=== PATIENT | female | born 1960 | race African-American/Black ===

== ENCOUNTER 2016-11-28 12:40 | Emergency (ER) | payer BC ==
[2016-11-28] MEDS ORDERED: ASPIRIN 81 MG TABLET, CHEWABLE PO ONE (12:58)
--- NOTE | 2016-11-28 12:59 | ER Document Report ---
ED Medical Screen (RME) - General Stated Complaint: CHEST PAIN, ELEVATED BLOOD PRESSURE Mode of Arrival: Wheelchair Information source: Patient Notes: Patient complains of palpitations and elevated blood pressure today. Patient also reports some chest pain that started last night. hx: Asthma, CHF, cardiomegaly, GERD I have greeted and performed a rapid initial assessment of this patient. A comprehensive ED assessment and evaluation of the patient, analysis of test results and completion of the medical decision making process will be conducted by additional ED providers. TRAVEL OUTSIDE OF THE [place] IN LAST 30 DAYS: No - Related Data Allergies/Adverse Reactions: fish derived [Fish derived] Allergy (Unknown, Verified 09/18/16 14:56) hydrocodone bitartrate [From [place]] Allergy (Verified 09/18/16 14:56) latex [Latex] Allergy (Verified 09/18/16 14:56) Past Medical History - Past Medical History Cardiac Medical History: Reports: Hx Congestive Heart Failure, Hx Hypertension Denies: Hx Atrial Fibrillation, Hx Coronary Artery Disease, Hx DVT, Hx Heart Attack, Hx Hypercholesterolemia, Hx Peripheral Vascular Disease, Hx Pulmonary Embolism, Hx Heart Murmur Pulmonary Medical History: Reports: Hx Asthma, Hx COPD Denies: Hx Bronchitis, Hx Pneumonia Neurological Medical History: Denies: Hx Cerebrovascular Accident, Hx Seizures Renal/ Medical History: Reports: Hx Kidney Stones. Denies: Hx End Stage Renal Disease, Hx Ovarian Cysts, Hx Peritoneal Dialysis, Hx Pelvic Inflammatory Disease GI Medical History: Reports: Hx Gastroesophageal Reflux Disease, Hx Hiatal Hernia, Hx Irritable Bowel Musculoskeltal Medical History: Reports Hx Arthritis, Reports Hx Musculoskeletal Deformity Past Surgical History: Reports: Hx Breast Surgery - bilateral lumphectomy, Hx Cardiac Catheterization - X 2, Hx Section, Hx Cholecystectomy, Hx Hysterectomy, Hx Orthopedic Surgery - right shoulder x 2, neck - Immunizations Immunizations up to date: Yes Hx Diphtheria, Pertussis, Tetanus Vaccination: Yes Physical Exam - Vital signs Vitals: Temp Pulse Resp BP Pulse Ox 97.9 F 64 20 157/95 H 100 11/28/16 12:55 11/28/16 12:55 11/28/16 12:55 11/28/16 12:55 11/28/16 12:55 - Cardiovascular Rhythm: Regular Heart sounds: S1 appreciated, S2 appreciated Course - Vital Signs Vital signs: Temp Pulse Resp BP Pulse Ox 97.9 F 64 20 157/95 H 100 11/28/16 12:55 11/28/16 12:55 11/28/16 12:55 11/28/16 12:55 11/28/16 12:55
[2016-11-28 13:47] LABS: ABSOLUTE EOSINOPHILS # (AUTO) 0.1 10^3/uL (0.0-0.6); ABSOLUTE LYMPHOCYTES (AUTO) 1.7 10^3/uL (0.5-4.7); ABSOLUTE MONOCYTES (AUTO) 0.3 10^3/uL (0.1-1.4); ABSOLUTE NEUT (AUTO) 2.1 10^3/uL (1.7-8.2); BASOPHILS % (AUTO) 1.1 % (0-2); EOSINOPHILS % (AUTO) 2.6 % (0-6); HEMATOCRIT 33.5 % (36.0-47.0); HEMOGLOBIN 10.9 g/dL (12.0-15.5); HGB HCT DIFFERENCE -0.8; LYMPHOCYTES % (AUTO) 38.9 % (13-45); MEAN CORPUSCULAR HEMOGLOBIN 28.2 pg (27.0-33.4); MEAN CORPUSCULAR HGB CONC 32.6 g/dL (32.0-36.0); MEAN CORPUSCULAR VOLUME 86 fl (80-97); RED BLOOD COUNT 3.88 10^6/uL (3.72-5.28); RED CELL DISTRIBUTION WIDTH 13.8 % (11.5-14.0); SEGMENTED NEUTROPHILS % (AUTO) 49.4 % (42-78); WHITE BLOOD COUNT 4.3 10^3/uL (4.0-10.5)
[2016-11-28 14:13] LABS: ALANINE AMINOTRANSFERASE 41 U/L (9-52); ALBUMIN 3.9 g/dL (3.5-5.0); ALKALINE PHOSPHATASE 60 U/L (38-126); ANION GAP 10 (5-19); ASPARTATE AMINO TRANSFERASE 31 U/L (14-36); BILIRUBIN,TOTAL 0.7 mg/dL (0.2-1.3); BLOOD UREA NITROGEN 9 mg/dL (7-20); CALCIUM 9.2 mg/dL (8.4-10.2); CARBON DIOXIDE 27 mmol/L (22-30); CHLORIDE 106 mmol/L (98-107); CREATINE KINASE 69 U/L (30-135); CREATININE RESULT 0.88 mg/dL (0.52-1.25); GLUCOSE 110 mg/dL (75-110); LIPASE 39.7 U/L (23-300); MAGNESIUM 1.7 mg/dL (1.6-2.3); POTASSIUM 3.7 mmol/L (3.6-5.0); SODIUM 143.4 mmol/L (137-145)
[2016-11-28 14:25] LABS: CREATINE KINASE MB < 0.22 ng/mL (<4.55)
[2016-11-28 14:29] LABS: TROPONIN I 0.101 ng/mL
--- NOTE | 2016-11-28 14:50 | ER Document Report ---
ED Cardiac - General Time seen by provider: 14:35 Mode of Arrival: Wheelchair Information source: Patient TRAVEL OUTSIDE OF THE [place] IN LAST 30 DAYS: No - HPI Patient complains to provider of: Chest pain, Shortness of breath Cardiac risk factors: Hypertension, Hx CHF <DARION JIANG - Last Filed: 11/28/16 17:28> <ALFREDOKYRA DENZEL - Last Filed: 11/28/16 21:06> - General Chief Complaint: Chest Pain Stated Complaint: CHEST PAIN, ELEVATED BLOOD PRESSURE Notes: Patient is a 56 year old female presenting to the emergency department with chest pain. Patient started having chest pain last night and it has continued today. Patient states she has been more short of breath over the past few days. Patient also complains of some palpitations to triage personnel. Patient uses 2 lpm of O2 at home and is 100% with this in the ED. Patient states she did not take any Aspirin or nitroglycerin today or in the past. Patient was given Aspirin upon arrival. Patient states she is currently still having some chest pain right now in the ED. Patient also has some increased swelling to her lower extremities bilaterally. Patient states her PCP is Dr. Quesada with Dr. Rothman's office. Patient was seen in the emergency department on 09/18/16 for similar symptoms. Patient has a history of asthma, hypertension, CHF, cardiomegaly, and GERD. Patient has a history of a negative cardiac catheriterization in 2005. Patient states the only change to her medications is an added Vitamin D supplement and some oxycodone. (DARION JIANG) - Related Data Allergies/Adverse Reactions: fish derived [Fish derived] Allergy (Unknown, Verified 09/18/16 14:56) hydrocodone bitartrate [From [place]] Allergy (Verified 09/18/16 14:56) latex [Latex] Allergy (Verified 09/18/16 14:56) Past Medical History - General Information source: Patient - Social History Smoking Status: Never Smoker Chew tobacco use (# tins/day): No Frequency of alcohol use: None Drug Abuse: None Family History: None Patient has suicidal ideation: No Patient has homicidal ideation: No - Past Medical History Cardiac Medical History: Reports: Hx Congestive Heart Failure, Hx Hypertension Pulmonary Medical History: Reports: Hx Asthma, Hx COPD Renal/ Medical History: Reports: Hx Kidney Stones GI Medical History: Reports: Hx Gastroesophageal Reflux Disease, Hx Hiatal Hernia, Hx Irritable Bowel Musculoskeltal Medical History: Reports Hx Arthritis, Reports Hx Musculoskeletal Deformity Past Surgical History: Reports: Hx Breast Surgery - bilateral lumphectomy, Hx Cardiac Catheterization - X 2, Hx Section, Hx Cholecystectomy, Hx Hysterectomy, Hx Orthopedic Surgery - right shoulder x 2, neck - Immunizations Immunizations up to date: Yes Hx Diphtheria, Pertussis, Tetanus Vaccination: Yes Hx Pneumococcal Vaccination: 10/05/06 <DARION JIANG - Last Filed: 11/28/16 17:28> Review of Systems - Review of Systems Constitutional: No symptoms reported EENT: No symptoms reported Cardiovascular: See HPI, Chest pain Respiratory: See HPI, Short of breath Gastrointestinal: No symptoms reported Genitourinary: No symptoms reported Female Genitourinary: No symptoms reported Musculoskeletal: No symptoms reported Skin: No symptoms reported Hematologic/Lymphatic: No symptoms reported Neurological/Psychological: No symptoms reported -: Yes All other systems reviewed and negative <DARION JIANG - Last Filed: 11/28/16 17:28> Physical Exam - Vital signs Interpretation: Normal - General General appearance: Appears well, Alert In distress: Mild - HEENT Head: Normocephalic, Atraumatic Eyes: Normal Pupils: PERRL Nasal: Other - nasal canula in place Mucous membranes: Moist - Respiratory Respiratory status: No respiratory distress Chest status: Nontender Breath sounds: Normal Chest palpation: Normal - Cardiovascular Rhythm: Regular Heart sounds: Normal auscultation Murmur: No - Abdominal Inspection: Obese Distension: No distension Bowel sounds: Normal Tenderness: Nontender Organomegaly: No organomegaly - Back Back: Normal, Nontender - Extremities General upper extremity: Normal inspection, Normal ROM, Normal strength General lower extremity: Normal inspection, Edema - non-pitting edema bilaterally, Normal ROM, Normal strength - Neurological Neuro grossly intact: Yes Cognition: Normal Orientation: AAOx4 Ivon Coma Scale Eye Opening: Spontaneous [place] Coma Scale Verbal: Oriented [place] Coma Scale Motor: Obeys Commands [place] Coma Scale Total: 15 Speech: Normal - Psychological Associated symptoms: Normal affect, Normal mood - Skin Skin Temperature: Warm Skin Moisture: Dry <DARION JIANG - Last Filed: 11/28/16 17:28> Course - Laboratory Result Diagrams: 11/28/16 13:25 11/28/16 13:25 - Consults [facility] Transfer Time consulted: 14:50 <DARION JIANG - Last Filed: 11/28/16 17:28> - Laboratory Result Diagrams: 11/28/16 13:25 11/28/16 13:25 - Diagnostic Test Radiology reviewed: Reports reviewed - EKG Interpretation by Or EKG shows normal: Sinus rhythm Rate: Normal Rhythm: NSR <KYRA FUENTES - Last Filed: 11/28/16 21:06> - Re-evaluation Re-evalutation: 11/28/16 Patient is a 56-year-old female who comes in complaining of chest pain. Patient states that the pain began earlier today. Patient has had a cardiac catheterization in the past but it wasn't 2005. Patient is a history of cardiomegaly and CHF. Denies any difficulty breathing. Initial troponin is 0.1. No anticoagulation. Patient was given aspirin here in the emergency department. She is wearing her home oxygen. Oxygenation within normal limits. No acute changes on EKG. Discussed with Dr. Szymanski at [facility]. Patient will be given Lovenox here and sent to [facility]. Of note, the patient began to have more chest pain and nitro drip was started and sedative nitro paste. Patient was nearly chest pain-free at the time of transfer on a 15 g nitroglycerin drip. Discuss transfer and reason for with patient who agrees with transfer and plan. Stable at time of transfer. (KYRA FUENTES) - Vital Signs Vital signs: Temp Pulse Resp BP Pulse Ox 98.0 F 64 18 181/92 H 100 11/28/16 17:55 11/28/16 12:55 11/28/16 17:41 11/28/16 17:41 11/28/16 17:41 (DARION JIANG) (KYRA FUENTES) - Laboratory Laboratory results interpreted by me: 11/28/16 13:25 Hgb 10.9 L Hct 33.5 L (DARION JIANG) (KYRA FUENTES) - Consults [facility] Transfer Reason for consultation: 11/28/16 14:50 Called [facility] Transfer system for possible transfer, they will call back. 11/28/16 15:30 Callback from [facility]. Patient will be transferred and the accepting physician is Dr. Szymanski. 11/28/16 17:20 Call from [facility] Transfer Center, they will be sending a bird to transfer the patient. (DARION JIANG) Critical Care Note - Critical Care Note Total time excluding time spent on procedures (mins): 90 - evaluation and management of patient with chest pain, unstable angina, multiple re-evaluations , consultation with specialist, coordination of transfer, counseling of patient and family <KYRA FUENTES - Last Filed: 11/28/16 21:06> Discharge <DARION JIANG - Last Filed: 11/28/16 17:28> <KYRA FUENTES - Last Filed: 11/28/16 21:06> - Discharge Clinical Impression: Unstable angina, NSTEMI (non-ST elevated myocardial infarction) Condition: Stable Disposition: [facility] Scribe Attestation: 11/28/16 21:05 I personally performed the services described in the documentation, reviewed and edited the documentation which was dictated to the scribe in my presence, and it accurately records my words and actions. (KYRA FUENTES) Scribe Documentation - Scribe Written by Scrcesia:: Darion Jiang 11/28/15 14:55 acting as scribe for :: Alfredo <DARION JIANG - Last Filed: 11/28/16 17:28>
[2016-11-28] MEDS ORDERED: NITROGLYCERIN 2% OINTMENT 1 GM PACKET TP ONE (14:56)
[2016-11-28] MEDS ORDERED: NITROGLYCERIN/D5W 250 ML IV PRN (16:05)
[2016-11-28] MEDS ORDERED: ENOXAPARIN SODIUM INJ 150 MG/1 ML DISP.SYRIN SUBCUT SCH ×2 (16:15→22:00)
[2016-11-28] MEDS ORDERED: ENOXAPARIN SODIUM INJ 150 MG/1 ML DISP.SYRIN SUBCUT ONE (17:00)
[2016-11-28 17:53] VITALS: BP 181/92
--- NOTE | 2016-11-28 18:04 | EKG REPORT ---
SEVERITY:- ABNORMAL ECG - SINUS RHYTHM FIRST DEGREE AV BLOCK BORDERLINE LEFT AXIS DEVIATION ANTERIOR INFARCT, AGE INDETERMINATE NONSPECIFIC T ABNORMALITIES, INFERIOR LEADS : Confirmed by: Janet Albarado MD 28-Nov-2016 18:03:55
--- NOTE | 2016-11-28 18:04 | EKG REPORT ---
SEVERITY:- ABNORMAL ECG - SINUS RHYTHM FIRST DEGREE AV BLOCK LEFT VENTRICULAR HYPERTROPHY CONSIDER ANTERIOR INFARCT : Confirmed by: Janet Albarado MD 28-Nov-2016 18:04:09
[2016-11-29] MEDS ORDERED: ENOXAPARIN SODIUM INJ 150 MG/1 ML DISP.SYRIN SUBCUT SCH (06:00)
== END 2016-11-28 17:59 | disposition short-term general hospital (02) ==
LOC: ER 12:40
DX: I21.4 Non-ST elevation (NSTEMI) myocardial infarction (principal); R60.0 Localized edema; R00.2 Palpitations; I10 Essential (primary) hypertension; J45.909 Unspecified asthma, uncomplicated; J44.9 Chronic obstructive pulmonary disease, unspecified; R06.02 Shortness of breath; Z99.81 Dependence on supplemental oxygen; Z79.899 Other long term (current) drug therapy; Z79.891 Long term (current) use of opiate analgesic; Z91.013 Allergy to seafood; Z91.040 Latex allergy status; Z88.5 Allergy status to narcotic agent
CPT/HCPCS: 93005; 99291; 99292; 96372; 36415; 82553; 82550; 83690; 83735; 84443; 85025; 80053; 84484; 83880; 71020; 93010; J3490 ×2

== ENCOUNTER → 2016-12-29 | Outpatient (CLI) | payer BC | LOC: OD 08:58 | PROVIDERS: ATTEND Internal Medicine | DX: R06.02 Shortness of breath (principal); R00.2 Palpitations; I10 Essential (primary) hypertension; I35.1 Nonrheumatic aortic (valve) insufficiency; J45.998 Other asthma; G47.30 Sleep apnea, unspecified; R60.9 Edema, unspecified; E78.5 Hyperlipidemia, unspecified; Z79.899 Other long term (current) drug therapy | CPT/HCPCS: 36415; 83880 ==

== ENCOUNTER 2017-02-01 07:51 | Emergency (ER) | payer BC ==
[2017-02-01] MEDS ORDERED: NORMAL SALINE 1000 ML 1,000 ML IV ONE (08:21)
[2017-02-01 09:19] LABS: ABSOLUTE BASOPHILS # (AUTO) 0.1 10^3/uL (0.0-0.2); ABSOLUTE EOSINOPHILS # (AUTO) 0.2 10^3/uL (0.0-0.6); ABSOLUTE MONOCYTES (AUTO) 0.6 10^3/uL (0.1-1.4); ABSOLUTE NEUT (AUTO) 2.2 10^3/uL (1.7-8.2); BASOPHILS % (AUTO) 1.5 % (0-2); EOSINOPHILS % (AUTO) 4.9 % (0-6); HEMATOCRIT 32.9 % (36.0-47.0); HEMOGLOBIN 10.5 g/dL (12.0-15.5); HGB HCT DIFFERENCE -1.4; LYMPHOCYTES % (AUTO) 25.4 % (13-45); MEAN CORPUSCULAR HEMOGLOBIN 27.7 pg (27.0-33.4); MEAN CORPUSCULAR HGB CONC 31.9 g/dL (32.0-36.0); MEAN CORPUSCULAR VOLUME 87 fl (80-97); MONOCYTES % (AUTO) 14.3 % (3-13); RED CELL DISTRIBUTION WIDTH 14.3 % (11.5-14.0); SEGMENTED NEUTROPHILS % (AUTO) 53.9 % (42-78)
[2017-02-01 09:38] LABS: ANION GAP 11 (5-19); BLOOD UREA NITROGEN 15 mg/dL (7-20); CALCIUM 9.3 mg/dL (8.4-10.2); CARBON DIOXIDE 25 mmol/L (22-30); CHLORIDE 109 mmol/L (98-107); CREATININE RESULT 0.94 mg/dL (0.52-1.25); GLUCOSE 119 mg/dL (75-110); POTASSIUM 4.5 mmol/L (3.6-5.0); SODIUM 144.7 mmol/L (137-145)
[2017-02-01 10:09] LABS: APPEARANCE,URINE SLIGHTLY-CLOUDY; BILIRUBIN,URINE NEGATIVE (NEGATIVE); GLUCOSE, URINE NEGATIVE (NEGATIVE); KETONES,URINE NEGATIVE (NEGATIVE); LEUKOCYTE ESTERASE,URINE NEGATIVE (NEGATIVE); NITRITE,URINE NEGATIVE (NEGATIVE); PROTEIN,URINE NEGATIVE (NEGATIVE); URINE SPECIFIC GRAVITY 1.014; UROBILINOGEN,URINE NEGATIVE mg/dL (<2.0)
[2017-02-01] MEDS ORDERED: KETOROLAC TROMETHAMINE INJ/PF 30 MG/1 ML SDV IV ONE (10:52)
[2017-02-01] MEDS ORDERED: ONDANSETRON HCL INJ/PF 4 MG/2 ML SDV IV ONE (10:52)
[2017-02-01] MEDS ORDERED: LIDOCAINE 5% (700 MG) TRANSDERMAL ADH..PATCH TP ONE (10:53)
--- NOTE | 2017-02-01 11:45 | ER Document Report ---
ED General - General Chief Complaint: Flank Pain Stated Complaint: FLANK PAIN TRAVEL OUTSIDE OF THE [place] IN LAST 30 DAYS: No - HPI Patient complains to provider of: right flank pain Notes: Patient is coming in for right flank pain states consistent with a kidney stone pain the past. Patient states she follows up with urology at [facility] Patient denies fevers chills nausea vomiting abdominal pain trauma. Patient denies any rashes of the right flank. Patient denies any dysuria. - Related Data Allergies/Adverse Reactions: fish derived [Fish derived] Allergy (Unknown, Verified 02/01/17 07:54) hydrocodone bitartrate [From [place]] Allergy (Verified 02/01/17 07:54) latex [Latex] Allergy (Verified 02/01/17 07:54) Past Medical History - Social History Smoking Status: Never Smoker Chew tobacco use (# tins/day): No Frequency of alcohol use: None Drug Abuse: None Family History: None Patient has suicidal ideation: No Patient has homicidal ideation: No - Past Medical History Cardiac Medical History: Reports: Hx Congestive Heart Failure, Hx Hypertension Denies: Hx Atrial Fibrillation, Hx Coronary Artery Disease, Hx DVT, Hx Heart Attack, Hx Hypercholesterolemia, Hx Peripheral Vascular Disease, Hx Pulmonary Embolism, Hx Heart Murmur Pulmonary Medical History: Reports: Hx Asthma, Hx COPD Denies: Hx Bronchitis, Hx Pneumonia Neurological Medical History: Denies: Hx Cerebrovascular Accident, Hx Seizures Renal/ Medical History: Reports: Hx Kidney Stones. Denies: Hx End Stage Renal Disease, Hx Ovarian Cysts, Hx Peritoneal Dialysis, Hx Pelvic Inflammatory Disease GI Medical History: Reports: Hx Gastroesophageal Reflux Disease, Hx Hiatal Hernia, Hx Irritable Bowel Musculoskeltal Medical History: Reports Hx Arthritis, Reports Hx Musculoskeletal Deformity Past Surgical History: Reports: Hx Breast Surgery - bilateral lumphectomy, Hx Cardiac Catheterization - X 2, Hx Section, Hx Cholecystectomy, Hx Hysterectomy, Hx Orthopedic Surgery - right shoulder x 2, neck - Immunizations Immunizations up to date: Yes Hx Diphtheria, Pertussis, Tetanus Vaccination: Yes Hx Pneumococcal Vaccination: 10/05/06 Review of Systems - Review of Systems Constitutional: No symptoms reported EENT: No symptoms reported Cardiovascular: No symptoms reported Respiratory: No symptoms reported Gastrointestinal: No symptoms reported Genitourinary: Flank pain Female Genitourinary: No symptoms reported Musculoskeletal: No symptoms reported Skin: No symptoms reported Hematologic/Lymphatic: No symptoms reported Neurological/Psychological: No symptoms reported -: Yes All other systems reviewed and negative Physical Exam - Vital signs Vitals: Temp Pulse Resp BP Pulse Ox 97.8 F 76 20 147/74 H 98 02/01/17 07:55 02/01/17 07:55 02/01/17 07:55 02/01/17 07:55 02/01/17 07:55 Interpretation: Normal - General General appearance: Appears well, Alert - HEENT Head: Normocephalic, Atraumatic Eyes: Normal Pupils: PERRL - Respiratory Respiratory status: No respiratory distress Chest status: Nontender Breath sounds: Normal Chest palpation: Normal - Cardiovascular Rhythm: Regular Heart sounds: Normal auscultation Murmur: No - Abdominal Inspection: Normal Distension: No distension Bowel sounds: Normal Tenderness: Nontender Organomegaly: No organomegaly - Back Back: Normal, Nontender Notes: No CVA no signs of rashes or trauma to the foot - Extremities General upper extremity: Normal inspection, Nontender, Normal color, Normal ROM , Normal temperature General lower extremity: Normal inspection, Nontender, Normal color, Normal ROM , Normal temperature, Normal weight bearing. No: Britney's sign - Neurological Neuro grossly intact: Yes Cognition: Normal Orientation: AAOx4 [place] Coma Scale Eye Opening: Spontaneous [place] Coma Scale Verbal: Oriented [place] Coma Scale Motor: Obeys Commands Golden Coma Scale Total: 15 Speech: Normal Motor strength normal: LUE, RUE, LLE, RLE Sensory: Normal - Psychological Associated symptoms: Normal affect, Normal mood - Skin Skin Temperature: Warm Skin Moisture: Dry Skin Color: Normal Course - Re-evaluation Re-evalutation: 02/01/17 15:01 CT scan not showing any signs of obstructive uropathy. Patient is a small kidney stone right side in the kidney. No signs of infection or signs of sepsis. Patient will be discharged home follow-up primary care physician. - Vital Signs Vital signs: Temp Pulse Resp BP Pulse Ox 97.4 F 88 18 149/84 H 100 02/01/17 12:15 02/01/17 12:15 02/01/17 12:15 02/01/17 12:15 02/01/17 12:15 - Laboratory Result Diagrams: 02/01/17 09:04 02/01/17 09:04 Laboratory results interpreted by me: 02/01/17 02/01/17 09:04 09:04 Hgb 10.5 L Hct 32.9 L MCHC 31.9 L RDW 14.3 H Monocytes % 14.3 H Chloride 109 H Glucose 119 H Discharge - Discharge Clinical Impression: Flank pain Condition: Good Disposition: HOME, SELF-CARE Instructions: Flank Pain ([facility]) Additional Instructions: Your lab work and your CT scan that showed any clear etiology for your flank pain. There is no signs of any obstructing kidney stones. You do have one small kidney stone with any kidney however these do not cause pain. More likely flank pain could be muscle skeletal in nature. I would continue to take Tylenol Motrin he may ask her pharmacist about [id number] lidocaine patches pleasing plenty of fluids to stay hydrated Prescriptions: Ibuprofen [Motrin 600 Mg Tablet] 600 mg PO TID #15 tablet Lidocaine [Lidoderm 5% (700 mg) Transdermal Patch] 1 patch TP DAILY #30 adh..patch Referrals: NAVIN HAYDEN MD [Primary Care Provider] - Follow up in 3-5 days
[2017-02-01 12:26] VITALS: BP 149/84
== END 2017-02-01 12:15 | disposition home or self-care (01) ==
LOC: ER 07:51
DX: R10.9 Unspecified abdominal pain (principal); I50.9 Heart failure, unspecified; I11.0 Hypertensive heart disease with heart failure; J44.9 Chronic obstructive pulmonary disease, unspecified; J45.909 Unspecified asthma, uncomplicated; K21.9 Gastro-esophageal reflux disease without esophagitis; Z87.442 Personal history of urinary calculi; Z88.6 Allergy status to analgesic agent; Z91.040 Latex allergy status; Z90.49 Acquired absence of other specified parts of digestive tract; Z90.710 Acquired absence of both cervix and uterus
CPT/HCPCS: 99284; 96361; 96374; 96375; 36415; 85025; 80048; 81001; 76380; J1885; J2405; J7030

== ENCOUNTER → 2017-02-09 | Outpatient (CLI) | payer BC ==
[2017-02-09 18:24] LABS: ANION GAP 11 (5-19); BLOOD UREA NITROGEN 10 mg/dL (7-20); CALCIUM 9.3 mg/dL (8.4-10.2); CARBON DIOXIDE 23 mmol/L (22-30); CHLORIDE 111 mmol/L (98-107); CREATININE RESULT 0.83 mg/dL (0.52-1.25); GLUCOSE 88 mg/dL (75-110); POTASSIUM 3.9 mmol/L (3.6-5.0); SODIUM 145.1 mmol/L (137-145)
== END ==
LOC: OD 16:40
PROVIDERS: ATTEND Internal Medicine
DX: Z79.899 Other long term (current) drug therapy (principal); R06.02 Shortness of breath; I50.32 Chronic diastolic (congestive) heart failure; I10 Essential (primary) hypertension; I35.1 Nonrheumatic aortic (valve) insufficiency; J45.998 Other asthma; G47.30 Sleep apnea, unspecified; R00.2 Palpitations; R60.9 Edema, unspecified; E78.5 Hyperlipidemia, unspecified
CPT/HCPCS: 36415; 80048

== ENCOUNTER 2017-04-06 11:51 | Emergency (ER) | payer BC ==
[2017-04-06] MEDS ORDERED: IBUPROFEN 600 MG TABLET PO ONE (12:36)
--- NOTE | 2017-04-06 12:40 | ER Document Report ---
ED Extremity Problem, Lower - General Chief Complaint: Leg Swelling Stated Complaint: LEG AND BACK PAIN Time Seen by Provider: 04/06/17 12:27 Notes: The patient is a 56-year-old female, past medical history arthritis, asthma, CHF (on Lasix 20 mg daily), presents with 2 days of increasing right thigh pain and swelling. She does not remember an injury and does not have a history of DVTs. In addition, she is having her usual chronic right lower back pain. Denies numbness, tingling, open wounds, falls, knee pain, change in bowel or bladder, saddle anesthesia or fevers. TRAVEL OUTSIDE OF THE [place] IN LAST 30 DAYS: No - Related Data Allergies/Adverse Reactions: fish derived [Fish derived] Allergy (Unknown, Verified 04/06/17 11:54) hydrocodone bitartrate [From [place]] Allergy (Verified 04/06/17 11:54) latex [Latex] Allergy (Verified 04/06/17 11:54) Past Medical History - General Information source: Patient - Social History Smoking Status: Unknown if Ever Smoked Family History: None Patient has suicidal ideation: No Patient has homicidal ideation: No - Past Medical History Cardiac Medical History: Reports: Hx Congestive Heart Failure, Hx Hypertension Denies: Hx Atrial Fibrillation, Hx Coronary Artery Disease, Hx DVT, Hx Heart Attack, Hx Hypercholesterolemia, Hx Peripheral Vascular Disease, Hx Pulmonary Embolism, Hx Heart Murmur Pulmonary Medical History: Reports: Hx Asthma, Hx COPD Denies: Hx Bronchitis, Hx Pneumonia Neurological Medical History: Denies: Hx Cerebrovascular Accident, Hx Seizures Renal/ Medical History: Reports: Hx Kidney Stones. Denies: Hx End Stage Renal Disease, Hx Ovarian Cysts, Hx Peritoneal Dialysis, Hx Pelvic Inflammatory Disease GI Medical History: Reports: Hx Gastroesophageal Reflux Disease, Hx Hiatal Hernia, Hx Irritable Bowel Musculoskeltal Medical History: Reports Hx Arthritis, Reports Hx Musculoskeletal Deformity Past Surgical History: Reports: Hx Breast Surgery - bilateral lumphectomy, Hx Cardiac Catheterization - X 2, Hx Section, Hx Cholecystectomy, Hx Hysterectomy, Hx Orthopedic Surgery - right shoulder x 2, neck - Immunizations Immunizations up to date: Yes Hx Diphtheria, Pertussis, Tetanus Vaccination: Yes Hx Pneumococcal Vaccination: 10/05/06 Review of Systems - Review of Systems Notes: REVIEW OF SYSTEMS: CONSTITUTIONAL: -fevers, -chills EENT: -eye pain, -difficulty swallowing, -nasal congestion CARDIOVASCULAR:-chest pain, -syncope. RESPIRATORY: -cough, -SOB GASTROINTESTINAL: -abdominal pain, - nausea, -vomiting, -diarrhea GENITOURINARY: -dysuria, -hematuria MUSCULOSKELETAL: +right leg pain and swelling, +chronic back pain, -neck pain SKIN: -rash or skin lesions. HEMATOLOGIC: -easy bruising or bleeding. LYMPHATIC: -swollen, enlarged glands. NEUROLOGICAL: -altered mental status or loss of consciousness, -headache, - neurologic symptoms PSYCHIATRIC: -anxiety, -depression. ALL OTHER SYSTEMS REVIEWED AND NEGATIVE. Physical Exam - Vital signs Vitals: Temp Pulse Resp BP Pulse Ox 98.3 F 79 22 H 117/68 97 04/06/17 11:54 04/06/17 11:54 04/06/17 11:54 04/06/17 11:54 04/06/17 11:54 - Notes Notes: PHYSICAL EXAMINATION: GENERAL: Well-appearing, well-nourished and in no acute distress. HEAD: Atraumatic, normocephalic. EYES: Pupils equal round and reactive to light, extraocular movements intact, sclera anicteric, conjunctiva are normal. ENT: nares patent, oropharynx clear without exudates. Moist mucous membranes. NECK: Normal range of motion, supple without lymphadenopathy LUNGS: Breath sounds clear to auscultation bilaterally and equal. No wheezes rales or rhonchi. HEART: Regular rate and rhythm without murmurs ABDOMEN: Soft, nontender, normoactive bowel sounds. No guarding, no rebound. No masses appreciated. EXTREMITIES: Swelling and tenderness of right thigh and popliteal area. Strong distal pulses. Normal range of motion, no pitting or edema. No cyanosis. NEUROLOGICAL: Cranial nerves grossly intact. Normal speech, normal gait. Normal sensory and motor exams. PSYCH: Normal mood, normal affect. SKIN: Warm, Dry, normal turgor, no rashes or lesions noted. Course - Re-evaluation Re-evalutation: Patient does not have any evidence of a DVT on ultrasound. She has good peripheral pulses. Back pain is chronic in nature and there are no red flag signs. Instructed her to double her Lasix dose for the next 5 days to help with her peripheral thigh edema. No respiratory distress to suggest acute pulmonary edema. Will treat with anti-inflammatories, tramadol and follow-up with her primary care physician. - Vital Signs Vital signs: Temp Pulse Resp BP Pulse Ox 97.4 F 78 18 120/70 98 04/06/17 16:00 04/06/17 16:00 04/06/17 16:00 04/06/17 16:00 04/06/17 16:00 - Diagnostic Test Radiology reviewed: Image reviewed, Reports reviewed Radiology results interpreted by me: ARSEN DVT US: No DVT or SVT. Discharge - Discharge Clinical Impression: Leg pain, right Condition: Stable Disposition: HOME, SELF-CARE Additional Instructions: You do not have a blood clot in your leg. Follow-up with your primary care physician for further evaluation and treatment. Myalagia (Muscle Pain) Myalgia is pain in the muscles. We use the word myalgia to describe muscle pain where there's no history of injury, no known muscle disease, and the muscles are normal to examination. Myalgias can be a symptom of an acute illness , such as influenza, hepatitis, or any viral illness, especially with fever. Sometimes the muscle pain comes before any other symptoms. Myalgia can also be an early symptom of inflammatory muscle disease, such as lupus. If myalgia is accompanied by an acute illness that explains the muscle pain , then no further testing needs to be done. When there's no clear reason for the pain, tests may be done to see if there's an inflammatory or other disease of the muscles. The usual treatment for myalgias is anti-inflammatory medication, such as ibuprofen. Muscle aches may be soothed with a heating pad or hot compress. If muscles remain painful for more than a few days, you'll need testing and followup. Return if a muscle becomes swollen, red, or severely painful. Prescriptions: Tramadol HCl [Ultram] 50 mg PO Q8H PRN #12 tablet PRN Reason: Referrals: NAVIN HAYDEN MD [Primary Care Provider] - Follow up as needed
--- NOTE | 2017-04-06 16:01 | RADIOLOGY REPORT (SQ) ---
EXAM DESCRIPTION: VENOUS UNILATERAL LOWER COMPLETED DATE/TIME: 04/06/2017 3:53 pm REASON FOR STUDY: RLE swelling and pain COMPARISON: None. TECHNIQUE: Dynamic and static beckett scale and color images acquired of the right leg venous system. S elected spectral images acquired with additional compression and augmentation maneuvers. The contrala teral common femoral vein and saphenofemoral junction were also imaged. Images stored on PACS. LIMITATIONS: None. FINDINGS: COMMON FEMORAL: Normal phasicity, compression and augmentation. No visualized echogenic ma terial on beckett scale. No defects on color images. FEMORAL: Normal compression and augmentation. No visualized echogenic material on beckett scale. No defe cts on color images. POPLITEAL: Normal compression, augmentation. No visualized echogenic material on beckett scale. No defec ts on color images. CALF VESSELS: Normal compression, augmentation. No visualized echogenic material on beckett scale. No de fects on color images. GSV and SSV: Normal compression, augmentation. No visualized echogenic material on beckett scale. No def ects on color images. ANY DEEP VENOUS INSUFFICIENCY: Not evaluated. ANY EVIDENCE OF POPLITEAL CYST: No. OTHER: No other significant finding. CONTRALATERAL COMMON FEMORAL VEIN AND SAPHENOFEMORAL JUNCTION: Normal phasicity, compression and augmentation. No visualized echogenic material on beckett scale. No de fects on color images. IMPRESSION: NO EVIDENCE DVT OR SVT IN THE RIGHT LEG. TECHNICAL DOCUMENTATION: JOB ID: [id number] [employer]- All Rights Reserved
[2017-04-06 17:40] VITALS: BP 120/70
== END 2017-04-06 16:18 | disposition home or self-care (01) ==
LOC: ER 11:51
DX: M79.651 Pain in right thigh (principal); M79.89 Other specified soft tissue disorders; G89.29 Other chronic pain; M54.5 Low back pain; J45.909 Unspecified asthma, uncomplicated; I50.9 Heart failure, unspecified; I11.0 Hypertensive heart disease with heart failure; J44.9 Chronic obstructive pulmonary disease, unspecified; Z91.040 Latex allergy status; Z88.6 Allergy status to analgesic agent; Z87.442 Personal history of urinary calculi; Z90.49 Acquired absence of other specified parts of digestive tract; Z90.710 Acquired absence of both cervix and uterus
CPT/HCPCS: 93971; 99283

== ENCOUNTER 2018-09-14 10:39 | Emergency (ER) | payer MEDICARE, BC ==
[2018-09-14] MEDS ORDERED: KETOROLAC TROMETHAMINE INJ/PF 30 MG/1 ML SDV IV ONE (10:55)
[2018-09-14] MEDS ORDERED: NORMAL SALINE 1000 ML 1,000 ML IV ONE (10:55)
[2018-09-14] MEDS ORDERED: MORPHINE SULFATE 10 MG/ML INJ IV ONE ×2 (10:56→14:49)
[2018-09-14] MEDS ORDERED: ONDANSETRON HCL INJ/PF 4 MG/2 ML SDV IV ONE (10:56)
--- NOTE | 2018-09-14 11:00 | ER Document Report ---
ED General - General Chief Complaint: Flank Pain Stated Complaint: STOMACH PAIN Time Seen by Provider: 09/14/18 10:50 TRAVEL OUTSIDE OF THE [place] IN LAST 30 DAYS: No - HPI Notes: Patient is a 57-year-old female that presents to the emergency department for chief complaint of right flank pain. Patient has had sharp constant pain in her right flank for the last 2 days. The pain radiates from her lower right back down into her right groin. She denies any vaginal bleeding or discharge. She has a history of frequent kidney stones and states this feels the same. She reports associated nausea with no vomiting or diarrhea. She denies any fevers or chills. She denies any hematuria, dysuria or urinary difficulty. Patient has had ureteral stenting in the past but none recently. Past Medical History: Hypertension, unstable angina, ureterolithiasis Past Surgical History: Reviewed in chart Social History: Denies drugs alcohol and tobacco Family History: Reviewed and noncontributory for presenting illness Allergies: Reviewed, see documented allergy list. REVIEW OF SYSTEMS: CONSTITUTIONAL : No fever No chills No diaphoresis No recent illness EENT: No vision changes No congestion No sore throat CARDIOVASCULAR: No chest pain No palpitations RESPIRATORY: No shortness of breath No cough No difficulty breathing GASTROINTESTINAL: Right flank pain abdominal pain No nausea No vomiting No diarrhea GENITOURINARY: No dysuria No hematuria No difficulty urinating MUSCULOSKELETAL: No back pain No leg pain No arm pain SKIN: No rashes No lesions LYMPHATIC: No swollen, enlarged glands. NEUROLOGICAL: No lightheadedness No headache No weakness No paresthesias PSYCHIATRIC: No anxiety No depression PHYSICAL EXAMINATION: Vital signs reviewed, nursing noted reviewed. GENERAL: Well-appearing, well-nourished and in no acute distress. HEAD: Atraumatic, normocephalic. EYES: Eyes appear normal, extraocular movements intact, sclera anicteric, conjunctiva are normal. ENT: nares patent, oropharynx clear without exudates. Moist mucous membranes. NECK: Normal range of motion, supple without lymphadenopathy LUNGS: Breath sounds clear to auscultation bilaterally and equal. No wheezes rales or rhonchi. HEART: Regular rate and rhythm without murmurs ABDOMEN: Right CVA tenderness, soft, no abdominal tenderness, normoactive bowel sounds. No rebound, guarding, or rigidity. No masses appreciated. EXTREMITIES: Nontender, good range of motion, no pitting or edema. NEUROLOGICAL: No focal neurological deficits. Moves all extremities spontaneously Motor and sensory grossly intact on exam. PSYCH: Normal mood, normal affect. SKIN: Warm, Dry, normal turgor, no rashes or lesions noted on exposed skin - Related Data Allergies/Adverse Reactions: fish derived [Fish derived] Allergy (Unknown, Verified 09/14/18 10:42) hydrocodone bitartrate [From [place]] Allergy (Verified 09/14/18 10:42) latex [Latex] Allergy (Verified 09/14/18 10:42) Past Medical History - Social History Smoking Status: Never Smoker Frequency of alcohol use: None Drug Abuse: None Family History: None Patient has suicidal ideation: No Patient has homicidal ideation: No - Past Medical History Cardiac Medical History: Reports: Hx Congestive Heart Failure, Hx Hypertension Denies: Hx Atrial Fibrillation, Hx Coronary Artery Disease, Hx DVT, Hx Heart Attack, Hx Hypercholesterolemia, Hx Peripheral Vascular Disease, Hx Pulmonary Embolism, Hx Heart Murmur Pulmonary Medical History: Reports: Hx Asthma, Hx COPD Denies: Hx Bronchitis, Hx Pneumonia Neurological Medical History: Denies: Hx Cerebrovascular Accident, Hx Seizures Renal/ Medical History: Reports: Hx Kidney Stones. Denies: Hx End Stage Renal Disease, Hx Ovarian Cysts, Hx Peritoneal Dialysis, Hx Pelvic Inflammatory Disease GI Medical History: Reports: Hx Gastroesophageal Reflux Disease, Hx Hiatal Hernia, Hx Irritable Bowel. Denies: Hx Pancreatitis Musculoskeletal Medical History: Reports Hx Arthritis, Reports Hx Musculoskeletal Deformity Past Surgical History: Reports: Hx Breast Surgery - bilateral lumphectomy, Hx Cardiac Catheterization - X 2, Hx Section, Hx Cholecystectomy, Hx Hysterectomy, Hx Orthopedic Surgery - right shoulder x 2, neck - Immunizations Immunizations up to date: Yes Hx Diphtheria, Pertussis, Tetanus Vaccination: Yes Hx Pneumococcal Vaccination: 10/05/06 Physical Exam - Vital signs Vitals: Temp Pulse Resp BP Pulse Ox 98.7 F 71 20 150/88 H 98 09/14/18 10:43 09/14/18 10:43 09/14/18 10:43 09/14/18 10:43 09/14/18 10:43 Course - Re-evaluation Re-evalutation: 09/14/18 10:59 Vitals reviewed. Nursing notes reviewed. Patient appears uncomfortable and was given IV hydration, pain medicine and antiemetics for symptomatic management. CT scan will be obtained to evaluate for ureterolithiasis. 09/14/18 13:00 CT scan shows likely punctate right ureterolithiasis with no hydronephrosis or hydroureter. Patient's urinalysis shows borderline urinary tract infection which will be treated with antibiotics because of likely kidney stone. She will be started on Percocet, Flomax, and ibuprofen for her kidney stone. Her CT scan also revealed a new small pericardial effusion. I did discuss these findings with the patient and recommend close follow with her primary care doctor to obtain echo for further interrogation. She is currently asymptomatic from her pericardial effusion and there is no cardiac tamponade, she is not requiring further workup of it in the emergency room. Patient was counseled on symptoms to return to the emergency room. She will follow with her primary care and urology as advised. Discharged home in stable condition. Laboratory 09/14/18 09/14/18 09/14/18 11:30 11:30 12:00 WBC 3.6 L RBC 4.25 Hgb 12.0 Hct 36.4 MCV 86 MCH 28.3 MCHC 33.0 RDW 13.4 Plt Count 270 Seg Neutrophils % 49.4 Lymphocytes % 37.2 Monocytes % 6.2 Eosinophils % 5.6 Basophils % 1.6 Absolute Neutrophils 1.8 Absolute Lymphocytes 1.3 Absolute Monocytes 0.2 Absolute Eosinophils 0.2 Absolute Basophils 0.1 Sodium Cancelled Potassium Cancelled Chloride Cancelled Carbon Dioxide Cancelled Anion Gap Cancelled BUN Cancelled Creatinine Cancelled Est GFR ( Amer) Cancelled Est GFR (Non-Af Amer) Cancelled Glucose Cancelled Calcium Cancelled Urine Color YELLOW Urine Appearance CLOUDY Urine pH 5.0 Ur Specific Boles 1.023 Urine Protein NEGATIVE Urine Glucose (UA) NEGATIVE Urine Ketones NEGATIVE Urine Blood NEGATIVE Urine Nitrite NEGATIVE Urine Bilirubin NEGATIVE Urine Urobilinogen 2.0 H Ur Leukocyte Esterase MODERATE H Urine WBC (Auto) 5 Urine RBC (Auto) 3 U Hyaline Cast (Auto) 12 Urine Bacteria (Auto) 1+ Squamous Epi Cells Auto 19 Urine Mucus (Auto) MANY Urine Ascorbic Acid NEGATIVE 09/14/18 12:08 WBC RBC Hgb Hct MCV MCH MCHC RDW Plt Count Seg Neutrophils % Lymphocytes % Monocytes % Eosinophils % Basophils % Absolute Neutrophils Absolute Lymphocytes Absolute Monocytes Absolute Eosinophils Absolute Basophils Sodium Cancelled Potassium Cancelled Chloride Cancelled Carbon Dioxide Cancelled Anion Gap Cancelled BUN Cancelled Creatinine Cancelled Est GFR ( Amer) Cancelled Est GFR (Non-Af Amer) Cancelled Glucose Cancelled Calcium Cancelled Urine Color Urine Appearance Urine pH Ur Specific Boles Urine Protein Urine Glucose (UA) Urine Ketones Urine Blood Urine Nitrite Urine Bilirubin Urine Urobilinogen Ur Leukocyte Esterase Urine WBC (Auto) Urine RBC (Auto) U Hyaline Cast (Auto) Urine Bacteria (Auto) Squamous Epi Cells Auto Urine Mucus (Auto) Urine Ascorbic Acid Abdomen/Pelvis CT 09/14/18 10:54 IMPRESSION: Nonobstructing punctate right lower pole stone. Scattered pelvic phleboliths was additional punctate density along the expected location of the right ureter, possibly punctate nonobstructing stone. No evidence of hydronephrosis or obstructive uropathy. New small pericardial effusion, etiology uncertain. Stable hiatal hernia. - Vital Signs Vital signs: Temp Pulse Resp BP Pulse Ox 98.7 F 71 20 150/88 H 98 09/14/18 10:43 09/14/18 10:43 09/14/18 10:43 09/14/18 10:43 09/14/18 10:43 - Laboratory Result Diagrams: 09/14/18 11:30 09/14/18 11:30 Laboratory results interpreted by me: 09/14/18 09/14/18 11:30 12:00 WBC 3.6 L Urine Urobilinogen 2.0 H Ur Leukocyte Esterase MODERATE H Discharge - Discharge Clinical Impression: Kidney stone, Pericardial effusion without cardiac tamponade Condition: Stable Disposition: HOME, SELF-CARE Instructions: Kidney Stone ([facility]), Urinary Tract Infection ([facility]) Additional Instructions: Please return to the emergency department if you have any worsening, or concern of your symptoms. Please return to the emergency department if you develop chest pain, difficulty breathing, severe abdominal pain, or ongoing vomiting. Please follow-up with your primary care physician in 2-3 days and any other recommended physicians. If prescribed, take all medications as directed. If you have any questions or concerns do not hesitate to return the emergency department for evaluation. You were found to have a small pericardial effusion on CT scan today. This is fluid around your heart. You should follow with your primary care doctor to obtain further diagnostic studies and workup of this effusion. Prescriptions: Cephalexin Monohydrate [Keflex 500 mg Capsule] 500 mg PO Q6H 5 Days capsule Oxycodone HCl/Acetaminophen [Percocet 5-325 mg Tablet] 1 tab PO Q6 PRN #15 tab PRN Reason: Pain Tamsulosin HCl [Flomax 0.4 mg Cap.sr] 0.4 mg PO DAILY #7 cap.sr.24h Referrals: ABELARDO TERRY MD [NO LOCAL MD] - Follow up in 3-5 days NAVIN HAYDEN MD [Primary Care Provider] - Follow up in 3-5 days
[2018-09-14 11:55] LABS: ABSOLUTE BASOPHILS # (AUTO) 0.1 10^3/uL (0.0-0.2); ABSOLUTE EOSINOPHILS # (AUTO) 0.2 10^3/uL (0.0-0.6); ABSOLUTE LYMPHOCYTES (AUTO) 1.3 10^3/uL (0.5-4.7); ABSOLUTE MONOCYTES (AUTO) 0.2 10^3/uL (0.1-1.4); ABSOLUTE NEUT (AUTO) 1.8 10^3/uL (1.7-8.2); BASOPHILS % (AUTO) 1.6 % (0-2); EOSINOPHILS % (AUTO) 5.6 % (0-6); HEMATOCRIT 36.4 % (36.0-47.0); LYMPHOCYTES % (AUTO) 37.2 % (13-45); MEAN CORPUSCULAR HEMOGLOBIN 28.3 pg (27.0-33.4); MEAN CORPUSCULAR VOLUME 86 fl (80-97); MONOCYTES % (AUTO) 6.2 % (3-13); PLATELET COUNT 270 10^3/uL (150-450); RED BLOOD COUNT 4.25 10^6/uL (3.72-5.28); RED CELL DISTRIBUTION WIDTH 13.4 % (11.5-14.0); SEGMENTED NEUTROPHILS % (AUTO) 49.4 % (42-78); TOTAL CELLS COUNTED % (AUTO) 100 %; WHITE BLOOD COUNT 3.6 10^3/uL (4.0-10.5)
--- NOTE | 2018-09-14 12:46 | RADIOLOGY REPORT (SQ) ---
EXAM DESCRIPTION: CT ABD/PELVIS NO ORAL OR IV COMPLETED DATE/TIME: 09/14/2018 12:22 pm REASON FOR STUDY: right flank pain COMPARISON: 11/28/2015 TECHNIQUE: CT scan of the abdomen and pelvis performed without intravenous or oral contrast. Images reviewed with lung, soft tissue, and bone windows. Reconstructed coronal and sagittal MPR images revi ewed. All images stored on PACS. All CT scanners at this facility use dose modulation, iterative reconstruction, and/or weight based d osing when appropriate to reduce radiation dose to as low as reasonably achievable (ALARA). [facility]: Dose Right [facility]: CareDose [facility]: Dose Right [facility]: Teradose 4D [facility]: Smart Reply.io RADIATION DOSE: CT Rad equipment meets quality standard of care and radiation dose reduction techniq ues were employed. CTDIvol: 21.1 mGy. DLP: 1183 mGy-cm.mGy. LIMITATIONS: None. FINDINGS: LOWER CHEST: New small pericardial effusion. Stable moderate hiatal hernia. No evidence of acute intrathoracic process. NON-CONTRASTED LIVER, SPLEEN, ADRENALS: Evaluation limited by lack of IV contrast. No identified sign ificant masses. PANCREAS: No masses. No peripancreatic inflammatory changes. GALLBLADDER: Surgically absent. RIGHT KIDNEY AND URETER: Punctate nonobstructing right lower pole stone. No obstructive uropathy or nephrolithiasis. Phleboliths adjacent to the expected location of the ureter. No hydronephrosis o r hydroureter. LEFT KIDNEY AND URETER: No suspicious masses. Assessment limited by lack of IV contrast. No nephrol ithiasis. Calcifications adjacent to the ureters, likely phleboliths. No hydronephrosis or hydrour eter. AORTA AND RETROPERITONEUM: No aneurysm. No retroperitoneal masses or adenopathy. BOWEL AND PERITONEAL CAVITY: No obvious masses or inflammatory changes. No free fluid. APPENDIX: Normal. PELVIS, BLADDER, AND ABDOMINAL WALL:No abnormal masses. No free fluid. Bladder normal. BONES: No acute bony abnormality. No suspicious osseous lesions. Lower lumbar facet arthropathy. OTHER: No other significant finding. IMPRESSION: Nonobstructing punctate right lower pole stone. Scattered pelvic phleboliths was additi onal punctate density along the expected location of the right ureter, possibly punctate nonobstructi ng stone. No evidence of hydronephrosis or obstructive uropathy. New small pericardial effusion, etiology uncertain. Stable hiatal hernia. COMMENT: Quality ID # [id number]: Final reports with documentation of one or more dose reduction techniques (e.g., Automated exposure control, adjustment of the mA and/or kV according to patient size, use of iterative reconstruction technique) TECHNICAL DOCUMENTATION: JOB ID: [id number] [employer]- All Rights Reserved Reading location - IP/workstation name: [email or web address] [id number]
[2018-09-14 12:47] LABS: APPEARANCE,URINE CLOUDY; BILIRUBIN,URINE NEGATIVE (NEGATIVE); COLOR,URINE YELLOW; GLUCOSE, URINE NEGATIVE (NEGATIVE); KETONES,URINE NEGATIVE (NEGATIVE); LEUKOCYTE ESTERASE,URINE MODERATE (NEGATIVE); NITRITE,URINE NEGATIVE (NEGATIVE); PROTEIN,URINE NEGATIVE (NEGATIVE); URINE SPECIFIC GRAVITY 1.023
[2018-09-14 13:58] LABS: ANION GAP 8 (5-19); BLOOD UREA NITROGEN 10 mg/dL (7-20); CALCIUM 8.7 mg/dL (8.4-10.2); CARBON DIOXIDE 25 mmol/L (22-30); CHLORIDE 111 mmol/L (98-107); GLUCOSE 105 mg/dL (75-110); POTASSIUM 4.1 mmol/L (3.6-5.0); SODIUM 143.7 mmol/L (137-145)
[2018-09-14 15:03] VITALS: BP 182/78
== END 2018-09-14 15:03 | disposition home or self-care (01) ==
LOC: ER 10:39
DX: N20.0 Calculus of kidney (principal); I31.3 Pericardial effusion (noninflammatory); I87.8 Other specified disorders of veins; K44.9 Diaphragmatic hernia without obstruction or gangrene; R11.0 Nausea; I10 Essential (primary) hypertension; J44.9 Chronic obstructive pulmonary disease, unspecified; Z88.5 Allergy status to narcotic agent; Z91.040 Latex allergy status; Z91.013 Allergy to seafood
CPT/HCPCS: 96376; 99284; 96361; 96374; 96375; 36415; 87086; 85025; 80048; 81001; 74176; J1885; J2270; J2405; J7030

== ENCOUNTER → 2018-09-21 | Outpatient (CLI) | payer MEDICARE, BC ==
--- NOTE | 2018-09-21 09:20 | RADIOLOGY REPORT (SQ) ---
EXAM DESCRIPTION: T SPINE AP/LAT COMPLETED DATE/TIME: 09/21/2018 8:37 am REASON FOR STUDY: RADICULAR PAIN IN THORACIC REGION (M54.14) 4 VIEWS R13.10 DYSPHAGIA, UNSPECIFIED COMPARISON: None. NUMBER OF VIEWS: Two views. TECHNIQUE: AP and lateral radiographic images acquired of the thoracic spine. LIMITATIONS: None. FINDINGS: MINERALIZATION: Normal. ALIGNMENT: Mild scoliosis, apex to the right. VERTEBRAE: No fracture or bone lesion. Maintained height, normal segmentation. DISCS: Mild multilevel disc space narrowing, mid-lower lumbar spine. Mildly prominent anterior oste ophytes mid-lower thoracic spine. HARDWARE: None in the spine. MEDIASTINUM AND SOFT TISSUES: Normal heart size and aortic contour. No soft tissue abnormality. VISUALIZED LUNG PANDEY: Clear. OTHER: Prior cholecystectomy. IMPRESSION: 1. Mild dextroconvex scoliosis and accompanying degenerative changes as above. 2. No acute osseous findings. TECHNICAL DOCUMENTATION: JOB ID: [id number] [employer]- All Rights Reserved Reading location - IP/workstation name: [email or web address]
--- NOTE | 2018-09-21 10:02 | ST Modified Barium Swallow ---
Recommendation - Recommendations Recommendations: No diet change recommendations, no skilled intervention indicated, normal swallow seen at study. Possible GI component contributing to globus sensation. Medical Diagnoses - Medical Diagnoses Medical Diagnosis Description & ICD-10 Code(s): Dysphagia R13.10 Other Medical Diagnoses/Co-Morbidities: per patient report: C-spine surgery, HTN , asthma, CHF, reflux ST Modified Barium Swallow - General Date: 09/21/18 Referring Physician: Dr. Traylor Risks/Precautions: None Date of Onset: 09/04/17 - approximate onset date Reason for Referral: globus sensation - History History obtained from: Patient -: Medical - Patient acted as her own historian. Patient reports difficulty swallowing for approximately 1 year, exact onset unable to be given. Patient reports globus sensation at meals specifically with solids, but no particular solids. No coughing while drinking reported, no recent pneumonias or bronchitis. Patient had a prior MBSS completed in 2014, at that study, no remarkable findings were reported. Patient had similar complaints at that study. Medications: per patient report: Carvedilol, Clonidine, Albuterol inhaler, Hydrochlorothiazide, pantoprazole, symbicort, spiriva Allergies: per patient report: fish - Functional Status Prior Functional Status: INDEPENDENT: feeding - independent Current Functional Limitations: feeding - Subjective Patient/caregiver goal(s): safe swallow Cognitive-Linguistic Function: WNL Speech Intelligibility: WNL Current Nutritional Means: PO Current PO diet: Regular Current symptoms: c/o Globus sensation Pain: Patient reports, 3/5 - back pain reported - Objective Assessment: Upright, Left Lateral - Food Trials Used Food trials used: Thin liquids, Pureed, Regular The patient: Was Able to Self Feed - Oral-Motor Skills Dentition: Partial Velo-pharyngeal function: Unremarkable - Assessment Oral prep: Normal Labial closure: Adequate Leakage: None Mastication: Adequate Lingual Movement: Normal Oral stage: Normal for this Procedure - Pharyngeal Stage Initiation of Pharyngeal Stage Reflex: Normal Decreased laryngeal elevation: No Reduced Velopharyngeal Closure: no Reduced pressure generation: No reduced tongue-based retraction: No Pre-swallow pooling in valleculae: None Pre-Swallow pooling in pyriforms: None Reduced Thyro-Hyoid approximation: No Reduced epiglottic excursion: No Reduced pharyngeal peristalsis/contraction: No Post-swallow residulas vallecular: None Post-Swallow residuals in pyriforms: None - Fall Risk Assessment Medications/Conditions that increase fall risks include: Antidepressants, sedatives, anti-arrhythmic, diuretic, benzodiazipenes, neuroleptics. BP regulation problems, cardiac problems, balance or gait deficits, neurological problems. Is patient considered at risk for falls: no Fall Risk Actions Taken: No action needed - Behavioral Observations During evaluation process patient: was pleasant, was cooperative, able to answer questions, provided medical history - Treatment / Educational Needs: Treatment/Education Needs: Treatment consisted of patient education on the role of the Speech Pathologist. Patient's plan of care and golas were communicated as well as scheduling and attendance policies. Recommendations for initial home program were shared. Patient demonstrated understanding and verbalized agreement. - Impression/Summary Laryngeal Penetration: No Tracheal Aspiration: no Patient presents with: Normal swallow at eval Risk of Aspiration: Minimal - Recommendations Solid diet recommendations: Regular Liquid Diet Modification: Thin Dysphagia therapy with DIRECTOR OF LOGISTICS: no Reflux Precautions: Taught to Patient Recommended techniques: Fully Upright During Meal, Alternate Bites/Sips Supervision: Independent Information, Precautions and Recommendations: Patient (Written), Patient (Verbal ) - Plan of Care Strategies to optimize patient understanding include:: ongoing assessment of educational needs, implementation of educational strategies, and re-education. - - -: Thank you for the opportunity to work with this patient and his/her family. Should you have any questions about this patient's plan or progress, I can be reached at [phone]. Charge G Code? - - -: Yes ST F.L. Impairment Category - Swallowing Current G8996: CH 0% Impaired Goal G8997: CH 0% Impaired Discharge G8998: CH 0% Impaired
--- NOTE | 2018-09-21 11:24 | RADIOLOGY REPORT (SQ) ---
EXAM DESCRIPTION: DANITZA SWALLOW COMPLETED DATE/TIME: 09/21/2018 8:56 am REASON FOR STUDY: DYSPHAGIA R13.10 DYSPHAGIA, UNSPECIFIED globus sensation COMPARISON: None. TECHNIQUE: Videofluoroscopic swallowing examination was performed in conjunction with speech patholo gy. Videofluoroscopic imaging was obtained and reviewed and these are the findings: RADIATION DOSE: 1.4 minutes of fluoroscopy was used. 1 images saved to PACS. LIMITATIONS: None FINDINGS: The patient was brought into the fluoro room and placed upright on a modified barium swall ow chair. The patient was then given multiple consistencies mixed with barium to swallow under live fluoroscopic video guidance. According to the Speech Pathologist there was no penetration or aspirat ion. IMPRESSION: NO EVIDENCE OF PENETRATION OR ASPIRATIONPLEASE SEE SPEECH PATHOLOGIST REPORT FOR OTHER F INDINGS AND RECOMMENDATIONS. COMMENT: Quality ID [id number]: Final reports for procedures using fluoroscopy that document radiation exp osure indices, or exposure time and number of fluorographic images (if radiation exposure indices are not available) TECHNICAL DOCUMENTATION: JOB ID: [id number] [employer]- All Rights Reserved Reading location - IP/workstation name: [id number]
== END ==
LOC: RAD 07:51
PROVIDERS: ATTEND Internal Medicine Pulmonary Disease
DX: M54.14 Radiculopathy, thoracic region (principal); R13.10 Dysphagia, unspecified
CPT/HCPCS: 72070; 74230; 92611; G8996; G8997; G8998

== ENCOUNTER 2018-10-01 10:30 | Emergency (ER) | payer MEDICARE, BC ==
--- NOTE | 2018-10-01 11:04 | ER Document Report ---
ED Medical Screen (RME) - General Chief Complaint: Chest Pain Stated Complaint: CHEST PAIN/SHORT OF BREATH/BLOOD PRESSURE ISSUE Time Seen by Provider: 10/01/18 11:00 Notes: Patient is here because she went to get an injection and when she did so the blood pressure was noted to be 172/102 when she was sent here for further evaluation. Patient has a history of hypertension and is on clonidine 0.3 mg 3 times daily, hydralazine 50 mg twice a day, and a beta-geri, carvedilol twice a day. Says she has been taking her medicines as prescribed. Patient is complaining of shortness of breath as well as some discomfort in her substernal chest region. Patient shortness of breath has been going on for several weeks. She was here a couple of weeks ago and told she had fluid around her heart. She is on Lasix as needed and says she has been taking it daily. TRAVEL OUTSIDE OF THE [place] IN LAST 30 DAYS: No - Related Data Allergies/Adverse Reactions: fish derived [Fish derived] Allergy (Unknown, Verified 10/01/18 10:34) hydrocodone bitartrate [From [place]] Allergy (Verified 10/01/18 10:34) latex [Latex] Allergy (Verified 10/01/18 10:34) Past Medical History - Social History Chew tobacco use (# tins/day): No Frequency of alcohol use: None Drug Abuse: None - Past Medical History Cardiac Medical History: Reports: Hx Congestive Heart Failure, Hx Hypertension Denies: Hx Atrial Fibrillation, Hx Coronary Artery Disease, Hx DVT, Hx Heart Attack, Hx Hypercholesterolemia, Hx Peripheral Vascular Disease, Hx Pulmonary Embolism, Hx Heart Murmur Pulmonary Medical History: Reports: Hx Asthma, Hx COPD Denies: Hx Bronchitis, Hx Pneumonia Neurological Medical History: Denies: Hx Cerebrovascular Accident, Hx Seizures Renal/ Medical History: Reports: Hx Kidney Stones. Denies: Hx End Stage Renal Disease, Hx Ovarian Cysts, Hx Peritoneal Dialysis, Hx Pelvic Inflammatory Disease GI Medical History: Reports: Hx Gastroesophageal Reflux Disease, Hx Hiatal Hernia, Hx Irritable Bowel. Denies: Hx Pancreatitis Musculoskeltal Medical History: Reports Hx Arthritis, Reports Hx Musculoskeletal Deformity Past Surgical History: Reports: Hx Breast Surgery - bilateral lumphectomy, Hx Cardiac Catheterization - X 2, Hx Section, Hx Cholecystectomy, Hx Hysterectomy, Hx Orthopedic Surgery - right shoulder x 2, neck - Immunizations Immunizations up to date: Yes Hx Diphtheria, Pertussis, Tetanus Vaccination: Yes History of Influenza Vaccine for 07/2017 - 12/2017 Season: No Physical Exam - Vital signs Vitals: Temp Pulse Resp BP Pulse Ox 98.8 F 101 H 16 157/106 H 97 10/01/18 10:44 10/01/18 10:44 10/01/18 10:44 10/01/18 10:44 10/01/18 10:44 Course - Vital Signs Vital signs: Temp Pulse Resp BP Pulse Ox 98.8 F 101 H 16 157/106 H 97 10/01/18 10:44 10/01/18 10:44 10/01/18 10:44 10/01/18 10:44 10/01/18 10:44
[2018-10-01 11:42] LABS: AMORPHOUS SEDIMENT,URINE TRACE /HPF; APPEARANCE,URINE CLOUDY; BILIRUBIN,URINE NEGATIVE (NEGATIVE); COLOR,URINE YELLOW; GLUCOSE, URINE NEGATIVE (NEGATIVE); KETONES,URINE NEGATIVE (NEGATIVE); LEUKOCYTE ESTERASE,URINE NEGATIVE (NEGATIVE); NITRITE,URINE NEGATIVE (NEGATIVE); PROTEIN,URINE NEGATIVE (NEGATIVE); UROBILINOGEN,URINE NEGATIVE mg/dL (<2.0)
--- NOTE | 2018-10-01 11:43 | RADIOLOGY REPORT (SQ) ---
EXAM DESCRIPTION: CHEST 2 VIEWS COMPLETED DATE/TIME: 10/01/2018 11:34 am REASON FOR STUDY: Shortness of breath COMPARISON: 11/28/2016 EXAM PARAMETERS: NUMBER OF VIEWS: two views TECHNIQUE: Digital Frontal and Lateral radiographic views of the chest acquired. RADIATION DOSE: NA LIMITATIONS: none FINDINGS: LUNGS AND PLEURA: No opacities, masses or pneumothorax. No pleural effusion. MEDIASTINUM AND HILAR STRUCTURES: No masses or contour abnormalities. HEART AND VASCULAR STRUCTURES: Cardiomegaly. No evidence for failure. BONES: No acute findings. HARDWARE: None in the chest. OTHER: No other significant finding. IMPRESSION: NO ACUTE RADIOGRAPHIC FINDING IN THE CHEST. TECHNICAL DOCUMENTATION: JOB ID: [id number] [employer]- All Rights Reserved Reading location - IP/workstation name: [email or web address]
[2018-10-01 11:56] LABS: ABSOLUTE BASOPHILS # (AUTO) 0.1 10^3/uL (0.0-0.2); ABSOLUTE EOSINOPHILS # (AUTO) 0.2 10^3/uL (0.0-0.6); ABSOLUTE LYMPHOCYTES (AUTO) 1.3 10^3/uL (0.5-4.7); ABSOLUTE MONOCYTES (AUTO) 0.5 10^3/uL (0.1-1.4); ABSOLUTE NEUT (AUTO) 1.8 10^3/uL (1.7-8.2); BASOPHILS % (AUTO) 1.6 % (0-2); HEMATOCRIT 35.5 % (36.0-47.0); HEMOGLOBIN 11.6 g/dL (12.0-15.5); LYMPHOCYTES % (AUTO) 34.3 % (13-45); MEAN CORPUSCULAR HEMOGLOBIN 28.3 pg (27.0-33.4); MEAN CORPUSCULAR HGB CONC 32.8 g/dL (32.0-36.0); MEAN CORPUSCULAR VOLUME 86 fl (80-97); MONOCYTES % (AUTO) 12.9 % (3-13); PLATELET COUNT 241 10^3/uL (150-450); RED BLOOD COUNT 4.12 10^6/uL (3.72-5.28); SEGMENTED NEUTROPHILS % (AUTO) 46.2 % (42-78); TOTAL CELLS COUNTED % (AUTO) 100 %; WHITE BLOOD COUNT 3.9 10^3/uL (4.0-10.5)
[2018-10-01 12:20] LABS: ALANINE AMINOTRANSFERASE 15 U/L (9-52); ALBUMIN 3.7 g/dL (3.5-5.0); ALKALINE PHOSPHATASE 41 U/L (38-126); ANION GAP 6 (5-19); ASPARTATE AMINO TRANSFERASE 25 U/L (14-36); BILIRUBIN,DIRECT 0.3 mg/dL (0.0-0.4); BILIRUBIN,TOTAL 0.5 mg/dL (0.2-1.3); BLOOD UREA NITROGEN 10 mg/dL (7-20); CALCIUM 9.1 mg/dL (8.4-10.2); CARBON DIOXIDE 26 mmol/L (22-30); CHLORIDE 112 mmol/L (98-107); GLUCOSE 123 mg/dL (75-110); POTASSIUM 3.3 mmol/L (3.6-5.0); SODIUM 144.3 mmol/L (137-145); TOTAL PROTEIN 6.7 g/dL (6.3-8.2)
[2018-10-01] MEDS ORDERED: LIDOCAINE 1% INJ-PF (10 MG/ML) 30 ML SDV NEB ONE (12:34)
[2018-10-01] MEDS ORDERED: IPRATROPIUM/ALBUTEROL 0.5-2.5 MG/3 ML AMPUL NEB ONE (12:34)
[2018-10-01 12:39] LABS: NT PRO BNP 183 pg/mL (5-900)
[2018-10-01 12:43] LABS: CREATINE KINASE MB < 0.22 ng/mL (<4.55); TROPONIN I < 0.012 ng/mL
--- NOTE | 2018-10-01 13:42 | ER Document Report ---
ED General - General Chief Complaint: Chest Pain Stated Complaint: CHEST PAIN/SHORT OF BREATH/BLOOD PRESSURE ISSUE Time Seen by Provider: 10/01/18 11:00 TRAVEL OUTSIDE OF THE U.[place] IN LAST 30 DAYS: No - HPI Patient complains to provider of: Chest pain short of breath elevated blood pressure cough Notes: Patient coming in for the above-stated symptoms. Patient was seen by her pr [place] whose note is provided below Patient is here because she went to get an injection and when she did so the blood pressure was noted to be 172/102 when she was sent here for further evaluation. Patient has a history of hypertension and is on clonidine 0.3 mg 3 times daily, hydralazine 50 mg twice a day, and a beta-geri, carvedilol twice a day. Says she has been taking her medicines as prescribed. Patient is complaining of shortness of breath as well as some discomfort in her substernal chest region. Patient shortness of breath has been going on for several weeks. She was here a couple of weeks ago and told she had fluid around her heart. She is on Lasix as needed and says she has been taking it daily. Patient upon my evaluation chest pain-free. States chest pain ongoing for a few days along with a cough. Patient states shortness of breath is ongoing for significant amount time is that she does have a history of asthma. Patient states compliance with her medications. Upon my evaluation blood pressure is now 150 systolic. Patient denies any headaches fevers chills nausea vomiting abdominal pain diarrhea. A brief review of the patient's medical records available in [employer] was performed - Related Data Allergies/Adverse Reactions: fish derived [Fish derived] Allergy (Unknown, Verified 10/01/18 10:34) hydrocodone bitartrate [From [place]] Allergy (Verified 10/01/18 10:34) latex [Latex] Allergy (Verified 10/01/18 10:34) Past Medical History - Social History Smoking Status: Current Every Day Smoker Chew tobacco use (# tins/day): No Frequency of alcohol use: None Drug Abuse: None Family History: None Patient has suicidal ideation: No Patient has homicidal ideation: No - Past Medical History Cardiac Medical History: Reports: Hx Congestive Heart Failure, Hx Hypertension Denies: Hx Atrial Fibrillation, Hx Coronary Artery Disease, Hx DVT, Hx Heart Attack, Hx Hypercholesterolemia, Hx Peripheral Vascular Disease, Hx Pulmonary Embolism, Hx Heart Murmur Pulmonary Medical History: Reports: Hx Asthma, Hx COPD Denies: Hx Bronchitis, Hx Pneumonia Neurological Medical History: Denies: Hx Cerebrovascular Accident, Hx Seizures Renal/ Medical History: Reports: Hx Kidney Stones. Denies: Hx End Stage Renal Disease, Hx Ovarian Cysts, Hx Peritoneal Dialysis, Hx Pelvic Inflammatory Disease GI Medical History: Reports: Hx Gastroesophageal Reflux Disease, Hx Hiatal Hernia, Hx Irritable Bowel. Denies: Hx Pancreatitis Musculoskeletal Medical History: Reports Hx Arthritis, Reports Hx Musculoskeletal Deformity Past Surgical History: Reports: Hx Breast Surgery - bilateral lumphectomy, Hx Cardiac Catheterization - X 2, Hx Section, Hx Cholecystectomy, Hx Hysterectomy, Hx Orthopedic Surgery - right shoulder x 2, neck - Immunizations Immunizations up to date: Yes Hx Diphtheria, Pertussis, Tetanus Vaccination: Yes Hx Pneumococcal Vaccination: 10/05/06 Review of Systems - Review of Systems Constitutional: No symptoms reported EENT: No symptoms reported Cardiovascular: Chest pain, Dyspnea Respiratory: Cough, Short of breath Gastrointestinal: No symptoms reported Genitourinary: No symptoms reported Female Genitourinary: No symptoms reported Musculoskeletal: No symptoms reported Skin: No symptoms reported Hematologic/Lymphatic: No symptoms reported Neurological/Psychological: No symptoms reported -: Yes All other systems reviewed and negative Physical Exam - Vital signs Vitals: Temp Pulse Resp BP Pulse Ox 98.8 F 101 H 16 157/106 H 97 10/01/18 10:44 10/01/18 10:44 10/01/18 10:44 10/01/18 10:44 10/01/18 10:44 Interpretation: Normal - General General appearance: Appears well, Alert - HEENT Head: Normocephalic, Atraumatic Eyes: Normal Pupils: PERRL - Respiratory Respiratory status: No respiratory distress Chest status: Nontender Breath sounds: Normal, Nonproductive cough Chest palpation: Normal - Cardiovascular Rhythm: Regular Heart sounds: Normal auscultation Murmur: No - Abdominal Inspection: Normal Distension: No distension Bowel sounds: Normal Tenderness: Nontender Organomegaly: No organomegaly - Back Back: Normal, Nontender - Extremities General upper extremity: Normal inspection, Nontender, Normal color, Normal ROM, Normal temperature General lower extremity: Normal inspection, Nontender, Normal color, Normal ROM, Normal temperature, Normal weight bearing. No: Britney's sign - Neurological Neuro grossly intact: Yes Cognition: Normal Orientation: AAOx4 [place] Coma Scale Eye Opening: Spontaneous Ivon Coma Scale Verbal: Oriented [place] Coma Scale Motor: Obeys Commands Ivon Coma Scale Total: 15 Speech: Normal Motor strength normal: LUE, RUE, LLE, RLE Sensory: Normal - Psychological Associated symptoms: Normal affect, Normal mood - Skin Skin Temperature: Warm Skin Moisture: Dry Skin Color: Normal Course - Re-evaluation Re-evalutation: 10/01/18 15:21 Patient had improvement of her respiratory symptoms with a DuoNeb and lidocaine neb. Patient will be discharged home via lidocaine to help out with cough suppression. Otherwise laboratory studies not show any signs of cardiac i schemia EKG is normal. I did perform a bedside ultrasound because the history of the pericardial effusion bedside ultrasound did show positive cardiac motion and very minimal or trace pericardial effusion. No signs of any acute pathology patient will be discharged home to follow-up with her primary care physician for further evaluation and maintenance of her chronic conditions. - Vital Signs Vital signs: Temp Pulse Resp BP Pulse Ox 98.8 F 101 H 16 175/91 H 98 10/01/18 10:44 10/01/18 10:44 10/01/18 13:53 10/01/18 13:53 10/01/18 13:53 - Laboratory Result Diagrams: 10/01/18 11:47 10/01/18 11:47 Laboratory results interpreted by me: 10/01/18 10/01/18 11:47 11:47 WBC 3.9 L Hgb 11.6 L Hct 35.5 L Potassium 3.3 L Chloride 112 H Glucose 123 H Discharge - Discharge Clinical Impression: History of hypertension, History of asthma, Cough Condition: Good Disposition: HOME, SELF-CARE Instructions: Asthma ([facility]) Additional Instructions: Please continue your breathing treatments at home. For your cough you may try the lidocaine 3 cc in your nebulizer every 6 hours as needed for aid in cough suppression I would also recommend honey. Laboratory evaluation is not show any critical pathology. Chest x-rays not show any infectious pathology nothing that she would need antibiotics for. I highly recommend she follow-up with your pulmonology specialist. Blood pressure is within typical limits I do not see any signs of heart damage or heart strain any lab work or on EKG we recommend continue your home blood pressure medications as prescribed. Bedside ultrasound does show a very small pericardial effusion I would highly recommend she continue to follow-up with your primary care physician for further evaluation of the fluid is around your heart.
[2018-10-01 13:55] VITALS: BP 175/91
--- NOTE | 2018-10-01 15:09 | EKG REPORT ---
SEVERITY:- BORDERLINE ECG - SINUS RHYTHM BORDERLINE T ABNORMALITIES, INFERIOR LEADS : Confirmed by: Naun Esteban 01-Oct-2018 15:08:15
== END 2018-10-01 14:07 | disposition home or self-care (01) ==
LOC: ER 10:30
DX: R05 Cough (principal); R07.9 Chest pain, unspecified; R06.02 Shortness of breath; R03.0 Elevated blood-pressure reading, without diagnosis of hypertension; F17.200 Nicotine dependence, unspecified, uncomplicated; I50.9 Heart failure, unspecified; I11.0 Hypertensive heart disease with heart failure; Z88.6 Allergy status to analgesic agent; Z87.442 Personal history of urinary calculi; Z90.49 Acquired absence of other specified parts of digestive tract; Z90.710 Acquired absence of both cervix and uterus
CPT/HCPCS: 93005; 94640 ×2; 99285; 36415; 82553; 85025; 80053; 81001; 84484; 83880; 71046; 93010; J3490; A9270; J7620

== ENCOUNTER → 2018-10-08 | Outpatient (CLI) | payer MEDICARE, BC ==
--- NOTE | 2018-10-08 22:49 | XCELERA REPORT ---
[address] [address] Transthoracic Echocardiogram Report Name: VANESSA SADLER Age: 57 yrs Gender: Female : 1960 Patient Status: Outpatient Patient Location: RAD Study Date: 10/08/2018 01:26 PM Height: 64 in Weight: 324 lb BSA: 2.4 m2 Procedure: A two-dimensional transthoracic echocardiogram with color flow and Doppler was performed. The study was technically difficult with many images being suboptimal in quality. Reason For Study: SOB History: Shortness of breath. Ordering Physician: JANET UMANA Performed By: Nae Estrada Interpretation Summary The left ventricle is normal in size. There is mild concentric left ventricular hypertrophy. LV EF is 60% Left ventricular systolic function is normal. Doppler measurements suggest pseudonormalized left ventricular relaxation, which is associated with grade II/IV or mild to moderate diastolic dysfunction The left ventricular wall motion is normal. There is no thrombus. There is no ventricular septal defect visualized. The right ventricle is grossly normal size. The right atrium is normal. The left atrial size is normal. The interatrial septum is intact with no evidence for an atrial septal defect. There is no evidence of mitral valve prolapse. There is no vegetation seen on the mitral valve. There is no mitral valve stenosis. There is a trace amount of mitral regurgitation There is no aortic valve stenosis No aortic regurgitation is present. There is no tricuspid stenosis. There is a trace amount of tricuspid regurgitation Unable to calculate RVSP due lack of TR jet. The pulmonic valve is not well visualized. There is no pulmonic valvular stenosis. There is no pulmonic valvular regurgitation. There is no pericardial effusion. MMode/2D Measurements & Calculations RVDd: 3.1 cm LVIDd: 4.6 cm FS: 31.2 % Ao root diam: 3.1 cm IVSd: 1.2 cm LVIDs: 3.1 cm EDV(Teich): 95.7 ml Ao root area: 7.8 cm2 LVPWd: 1.2 cm ESV(Teich): 39.2 ml LA dimension: 3.4 cm EF(Teich): 59.1 % Doppler Measurements & Calculations MV E max silvio: MV P1/2t max silvio: Ao V2 max: LV V1 max P.8 cm/sec 92.8 cm/sec 162.9 cm/sec 8.8 mmHg MV A max silvio: MV P1/2t: 45.5 msec Ao max PG: LV V1 max: 116.5 cm/sec MVA(P1/2t): 4.8 cm2 10.6 mmHg 148.6 cm/sec MV E/A: 0.80 MV dec slope: 597.6 cm/sec2 MV dec time: 0.12 sec PA V2 max: MV P1/2t-pr_phl: 111.1 cm/sec 37.8 msec PA max P.9 mmHg Left Ventricle The left ventricle is normal in size. There is mild concentric left ventricular hypertrophy. LV EF is 60%. Left ventricular systolic function is normal. Doppler measurements suggest pseudonormalized left ventricular relaxation, which is associated with grade II/IV or mild to moderate diastolic dysfunction. The left ventricular wall motion is normal. There is no thrombus. There is no ventricular septal defect visualized. Right Ventricle The right ventricle is grossly normal size. Atria The right atrium is normal. The left atrial size is normal. The interatrial septum is intact with no evidence for an atrial septal defect. Mitral Valve There is no evidence of mitral valve prolapse. There is no vegetation seen on the mitral valve. There is no mitral valve stenosis. There is a trace amount of mitral regurgitation. Aortic Valve There is no aortic valve stenosis. No aortic regurgitation is present. Tricuspid Valve There is no tricuspid stenosis. There is a trace amount of tricuspid regurgitation. Unable to calculate RVSP due lack of TR jet. Pulmonic Valve The pulmonic valve is not well visualized. There is no pulmonic valvular stenosis. There is no pulmonic valvular regurgitation. Great Vessels The aortic root is not well visualized but is probably normal size. Effusions There is no pericardial effusion. : JANET UMANA > Janet Umana
== END ==
LOC: RAD 13:49
PROVIDERS: ATTEND Specialist
DX: R06.02 Shortness of breath (principal)
CPT/HCPCS: 93306

== ENCOUNTER 2018-11-25 11:36 | Emergency (ER) | payer MEDICARE, BC ==
[2018-11-25] MEDS ORDERED: ASPIRIN 81 MG TABLET, CHEWABLE PO ONE (12:41)
--- NOTE | 2018-11-25 12:42 | ER Document Report ---
ED Medical Screen (RME) - General Chief Complaint: Chest Pain Stated Complaint: CHEST PAIN Time Seen by Provider: 11/25/18 12:26 Primary Care Provider: NAVIN HAYDEN MD [Primary Care Provider] - Follow up as needed Notes: Patient is a 58-year-old female with CHF that presents to the emergency department for chief complaint of chest pain. ROS: Other than noted above, the 12 point review of systems was reviewed with the patient and were negative, all pertinent findings are included in the HPI. PHYSICAL EXAMINATION: Vital signs reviewed. GENERAL: Well-appearing, well-nourished and in no acute distress. HEAD: Atraumatic, normocephalic. EYES: Pupils equal round extraocular movements intact, conjunctiva are normal. ENT: Nares patent NECK: Normal range of motion CV: Heart regular rate and rhythm LUNGS: No respiratory distress Musculoskeletal: Normal range of motion NEUROLOGICAL: Normal speech PSYCH: Normal mood, normal affect. MDM: Patient seen and examined for rapid initial assessment. Vital signs reviewed. A comprehensive ED assessment and evaluation of the patient, analysis of test results and completion of the medical decision making process will be conducted by additional ED providers. *Note is created using voice recognition software and may contain spelling, syntax or grammatical errors. TRAVEL OUTSIDE OF THE [place]. IN LAST 30 DAYS: No - Related Data Allergies/Adverse Reactions: fish derived [Fish derived] Allergy (Unknown, Verified 10/01/18 10:34) hydrocodone bitartrate [From [place]] Allergy (Verified 10/01/18 10:34) latex [Latex] Allergy (Verified 10/01/18 10:34) Past Medical History - Past Medical History Cardiac Medical History: Reports: Hx Congestive Heart Failure, Hx Hypertension Denies: Hx Atrial Fibrillation, Hx Coronary Artery Disease, Hx DVT, Hx Heart Attack, Hx Hypercholesterolemia, Hx Peripheral Vascular Disease, Hx Pulmonary Embolism, Hx Heart Murmur Pulmonary Medical History: Reports: Hx Asthma, Hx COPD Denies: Hx Bronchitis, Hx Pneumonia Neurological Medical History: Denies: Hx Cerebrovascular Accident, Hx Seizures Renal/ Medical History: Reports: Hx Kidney Stones. Denies: Hx End Stage Renal Disease, Hx Ovarian Cysts, Hx Peritoneal Dialysis, Hx Pelvic Inflammatory Disease GI Medical History: Reports: Hx Gastroesophageal Reflux Disease, Hx Hiatal Hernia, Hx Irritable Bowel. Denies: Hx Pancreatitis Musculoskeltal Medical History: Reports Hx Arthritis, Reports Hx Musculoskeletal Deformity Past Surgical History: Reports: Hx Breast Surgery - bilateral lumphectomy, Hx Cardiac Catheterization - X 2, Hx Section, Hx Cholecystectomy, Hx Hysterectomy, Hx Orthopedic Surgery - right shoulder x 2, neck - Immunizations Immunizations up to date: Yes Hx Diphtheria, Pertussis, Tetanus Vaccination: Yes History of Influenza Vaccine for 07/2017 - 12/2017 Season: No Physical Exam - Vital signs Vitals: Temp Pulse Resp BP Pulse Ox 97.9 F 97 14 149/97 H 98 11/25/18 11:54 11/25/18 11:54 11/25/18 11:54 11/25/18 11:54 11/25/18 11:54 Course - Vital Signs Vital signs: Temp Pulse Resp BP Pulse Ox 97.9 F 97 14 149/97 H 98 11/25/18 11:54 11/25/18 11:54 11/25/18 11:54 11/25/18 11:54 11/25/18 11:54 Doctor's Discharge - Discharge Referrals: NAVIN HAYDEN MD [Primary Care Provider] - Follow up as needed
--- NOTE | 2018-11-25 12:53 | EKG REPORT ---
SEVERITY:- ABNORMAL ECG - SINUS RHYTHM FIRST DEGREE AV BLOCK LEFT VENTRICULAR HYPERTROPHY PROBABLE INFERIOR INFARCT, AGE INDETERMINATE : Confirmed by: Kwaku Monge MD 25-Nov-2018 12:52:50
[2018-11-25 13:32] LABS: ABSOLUTE BASOPHILS # (AUTO) 0.1 10^3/uL (0.0-0.2); ABSOLUTE EOSINOPHILS # (AUTO) 0.2 10^3/uL (0.0-0.6); ABSOLUTE LYMPHOCYTES (AUTO) 1.3 10^3/uL (0.5-4.7); ABSOLUTE MONOCYTES (AUTO) 0.2 10^3/uL (0.1-1.4); ABSOLUTE NEUT (AUTO) 1.8 10^3/uL (1.7-8.2); BASOPHILS % (AUTO) 1.9 % (0-2); EOSINOPHILS % (AUTO) 4.2 % (0-6); HEMATOCRIT 37.3 % (36.0-47.0); HEMOGLOBIN 12.2 g/dL (12.0-15.5); LYMPHOCYTES % (AUTO) 36.8 % (13-45); MEAN CORPUSCULAR HEMOGLOBIN 27.9 pg (27.0-33.4); MEAN CORPUSCULAR HGB CONC 32.7 g/dL (32.0-36.0); MEAN CORPUSCULAR VOLUME 85 fl (80-97); PLATELET COUNT 255 10^3/uL (150-450); RED BLOOD COUNT 4.37 10^6/uL (3.72-5.28); RED CELL DISTRIBUTION WIDTH 13.5 % (11.5-14.0); SEGMENTED NEUTROPHILS % (AUTO) 51.1 % (42-78); TOTAL CELLS COUNTED % (AUTO) 100 %; WHITE BLOOD COUNT 3.6 10^3/uL (4.0-10.5)
--- NOTE | 2018-11-25 13:35 | RADIOLOGY REPORT (SQ) ---
EXAM DESCRIPTION: CHEST SINGLE VIEW COMPLETED DATE/TIME: 11/25/2018 1:05 pm REASON FOR STUDY: chest pain COMPARISON: 10/01/2018 EXAM PARAMETERS: NUMBER OF VIEWS: One view. TECHNIQUE: Single frontal radiographic view of the chest acquired. RADIATION DOSE: NA LIMITATIONS: None. FINDINGS: LUNGS AND PLEURA: No opacities, masses or pneumothorax. No pleural effusion. MEDIASTINUM AND HILAR STRUCTURES: No masses. Contour normal. HEART AND VASCULAR STRUCTURES: Cardiomegaly, stable finding. Normal vasculature. BONES: The osseous structures are stable in appearance. HARDWARE: None in the chest. OTHER: No other significant finding. IMPRESSION: 1. No significant interval changes since the prior study dated 10/01/2018. No acute fi ndings. 2. Cardiomegaly, stable finding. TECHNICAL DOCUMENTATION: JOB ID: [id number] [employer]- All Rights Reserved Reading location - IP/workstation name: [email or web address]
[2018-11-25] MEDS ORDERED: FENTANYL CITRATE INJ/PF 100 MCG/2 ML AMPUL IV ONE (14:18)
[2018-11-25] MEDS ORDERED: NITROGLYCERIN 0.4 MG/TAB 25 TAB/BOTTLE SL ONE (14:19)
[2018-11-25] MEDS ORDERED: ONDANSETRON HCL INJ/PF 4 MG/2 ML SDV IV ONE (14:19)
--- NOTE | 2018-11-25 14:23 | ER Document Report ---
ED General - General Chief Complaint: Chest Pain Stated Complaint: CHEST PAIN Time Seen by Provider: 11/25/18 12:26 Primary Care Provider: NAVIN HAYDEN MD [NO LOCAL MD] - Follow up as needed Mode of Arrival: Ambulatory Information source: Patient Notes: 58-year-old female with a history of hypertension, COPD, congestive heart failure presents emergency department with multiple complaints. Patient states that she has been having a left-sided headache for the last 2 weeks.'s been constant. She describes it as a throbbing sensation. She denies any alleviating or exacerbating factors. She states that it does radiate into the left neck and left arm. She is tried Tylenol without relief of symptoms. She has had similar headaches in the past. She states that they typically resolve on their own. She has never had a headache that lasted this long. Patient d enies any fever. She is also having complaints of chest pain that started yesterday. It has been constant. She describes it as a pressure sensation under the left breast. No radiation. No alleviating or exacerbating factors. She did not take any medication prior to arrival. She denies a history of coronary artery disease, diabetes, high cholesterol, family history of coronary artery disease. TRAVEL OUTSIDE OF THE [place] IN LAST 30 DAYS: No - HPI Onset: Other - Headache for the last 2 weeks, chest pain for the last day. Onset/Duration: Persistent Quality of pain: Pressure, Throbbing Associated symptoms: None Exacerbated by: Denies Relieved by: Denies Similar symptoms previously: Yes Recently seen / treated by doctor: No - Related Data Allergies/Adverse Reactions: fish derived [Fish derived] Allergy (Unknown, Verified 10/01/18 10:34) hydrocodone bitartrate [From [place]] Allergy (Verified 10/01/18 10:34) latex [Latex] Allergy (Verified 10/01/18 10:34) Past Medical History - General Information source: Patient - Social History Smoking Status: Former Smoker Family History: None, Reviewed & Not Pertinent Patient has suicidal ideation: No Patient has homicidal ideation: No - Past Medical History Cardiac Medical History: Reports: Hx Congestive Heart Failure, Hx Hypertension Denies: Hx Atrial Fibrillation, Hx Coronary Artery Disease, Hx DVT, Hx Heart Attack, Hx Hypercholesterolemia, Hx Peripheral Vascular Disease, Hx Pulmonary Embolism, Hx Heart Murmur Pulmonary Medical History: Reports: Hx Asthma, Hx COPD Denies: Hx Bronchitis, Hx Pneumonia Neurological Medical History: Denies: Hx Cerebrovascular Accident, Hx Seizures Renal/ Medical History: Reports: Hx Kidney Stones. Denies: Hx End Stage Renal Disease, Hx Ovarian Cysts, Hx Peritoneal Dialysis, Hx Pelvic Inflammatory Disease GI Medical History: Reports: Hx Gastroesophageal Reflux Disease, Hx Hiatal Hernia, Hx Irritable Bowel. Denies: Hx Pancreatitis Musculoskeletal Medical History: Reports Hx Arthritis, Reports Hx Musculoskeletal Deformity Past Surgical History: Reports: Hx Breast Surgery - bilateral lumphectomy, Hx Cardiac Catheterization - X 2, Hx Section, Hx Cholecystectomy, Hx Hysterectomy, Hx Orthopedic Surgery - right shoulder x 2, neck - Immunizations Immunizations up to date: Yes Hx Diphtheria, Pertussis, Tetanus Vaccination: Yes Hx Pneumococcal Vaccination: 10/05/06 Review of Systems - Review of Systems Constitutional: No symptoms reported EENT: No symptoms reported Cardiovascular: Chest pain Respiratory: No symptoms reported Gastrointestinal: No symptoms reported Genitourinary: No symptoms reported Female Genitourinary: No symptoms reported Musculoskeletal: No symptoms reported Skin: No symptoms reported Hematologic/Lymphatic: No symptoms reported Neurological/Psychological: No symptoms reported -: Yes All other systems reviewed and negative Physical Exam - Vital signs Vitals: Temp Pulse Resp BP Pulse Ox 97.9 F 97 14 149/97 H 98 11/25/18 11:54 11/25/18 11:54 11/25/18 11:54 11/25/18 11:54 11/25/18 11:54 - Notes Notes: PHYSICAL EXAMINATION: GENERAL: Well-appearing, well-nourished and in no acute distress. HEAD: Atraumatic, normocephalic. EYES: Pupils equal round and reactive to light, extraocular movements intact, conjunctiva are normal. ENT: Nares patent, oropharynx clear without exudates. Moist mucous membranes. NECK: Normal range of motion, supple without lymphadenopathy LUNGS: Breath sounds clear to auscultation bilaterally and equal. No wheezes rales or rhonchi. HEART: Regular rate and rhythm without murmurs ABDOMEN: Soft, nontender, nondistended abdomen. No guarding, no rebound. No masses appreciated. Female : deferred Musculoskeletal: Normal range of motion, no pitting or edema. No cyanosis. NEUROLOGICAL: Cranial nerves grossly intact. Normal speech, normal gait. Normal sensory, motor exams PSYCH: Normal mood, normal affect. SKIN: Warm, Dry, normal turgor, no rashes or lesions noted. Course - Re-evaluation Re-evalutation: 11/25/18 14:22 Patient denies any vision changes, speech changes, numbness, tingling, weakness. No neck tenderness to palpation. No meningeal signs appreciated. 11/25/18 14:24 EKG: Ventricular rate 94, IA interval 212, QRS duration 82, QTc 466, sinus rhythm, first-degree AV block. No ST segment elevation. 11/25/18 18:51 Labs and imaging obtained. Head CT was done and did not show an acute process. Chest x-ray does not show an acute process. 2 sets of troponins were done and both were normal. The remainder of the patient's labs were within normal limits. On re-evaluation, patient says she's feeling better. Chest pain has resolved. Headache decreased. I discussed the results with the patient. I told her to follow-up with her primary care physician this week, to take her medications prescribed as directed, and to return to the emergency department if she has any worsening symptoms. Patient is agreeable with plan of care. 11/25/18 18:57 - Vital Signs Vital signs: Temp Pulse Resp BP Pulse Ox 97.9 F 97 14 184/105 H 97 11/25/18 11:54 11/25/18 11:54 11/25/18 18:11 11/25/18 18:11 11/25/18 18:11 - Laboratory Result Diagrams: 11/25/18 13:22 11/25/18 15:40 Laboratory results interpreted by me: 11/25/18 11/25/18 13:22 15:40 WBC 3.6 L Chloride 110 H Glucose 112 H Direct Bilirubin 0.5 H AST 57 H ALT 7 L Discharge - Discharge Clinical Impression: Chest pain Qualifiers: Chest pain type: unspecified Qualified Code(s): R07.9 - Chest pain, unspecified Condition: Good Disposition: HOME, SELF-CARE Instructions: Chest Pain of Unclear Cause ([facility]) Referrals: NAVIN HAYDEN MD [NO LOCAL MD] - Follow up as needed
[2018-11-25 16:13] LABS: ALANINE AMINOTRANSFERASE 7 U/L (9-52); ALKALINE PHOSPHATASE 80 U/L (38-126); ANION GAP 8 (5-19); ASPARTATE AMINO TRANSFERASE 57 U/L (14-36); BILIRUBIN,DIRECT 0.5 mg/dL (0.0-0.4); BLOOD UREA NITROGEN 11 mg/dL (7-20); CALCIUM 9.3 mg/dL (8.4-10.2); CARBON DIOXIDE 25 mmol/L (22-30); CHLORIDE 110 mmol/L (98-107); GLUCOSE 112 mg/dL (75-110); POTASSIUM 3.9 mmol/L (3.6-5.0); SODIUM 142.9 mmol/L (137-145); TOTAL PROTEIN 6.8 g/dL (6.3-8.2)
[2018-11-25 16:25] LABS: TROPONIN I 0.013 ng/mL
[2018-11-25] MEDS ORDERED: NORMAL SALINE 500 ML IV ONE (17:38)
[2018-11-25] MEDS ORDERED: METOCLOPRAMIDE HCL INJ/PF 10 MG/2 ML SDV IV ONE (17:38)
[2018-11-25] MEDS ORDERED: DIPHENHYDRAMINE HCL 50 MG/ML VIAL IV ONE (17:38)
--- NOTE | 2018-11-25 18:08 | RADIOLOGY REPORT (SQ) ---
EXAM DESCRIPTION: CT HEAD WITHOUT COMPLETED DATE/TIME: 11/25/2018 5:52 pm REASON FOR STUDY: headache COMPARISON: 11/10/2014 TECHNIQUE: Axial images acquired through the brain without intravenous contrast. Images reviewed wi th bone, brain and subdural windows. Additional sagittal and coronal reconstructions were generated. Images stored on PACS. All CT scanners at this facility use dose modulation, iterative reconstruction, and/or weight based d osing when appropriate to reduce radiation dose to as low as reasonably achievable (ALARA). [facility]: Dose Right [facility]: CareDose [facility]: Dose Right [facility]: Teradose 4D [facility]: [employer] RADIATION DOSE: CT Rad equipment meets quality standard of care and radiation dose reduction techniq ues were employed. CTDIvol: 53.2 mGy. DLP: 1044 mGy-cm. mGy. LIMITATIONS: None. FINDINGS: VENTRICLES: Normal size and contour. CEREBRUM: Right temporal osteoma laterally. No masses or hemorrhage within the brain. No midline sh ift. Normal beckett/white matter differentiation. No areas of low density in the white matter. CEREBELLUM: No masses. No hemorrhage. No alteration of density. No evidence for acute infarction. EXTRAAXIAL SPACES: No fluid collections. No masses. ORBITS AND GLOBE: No intra- or extraconal masses. Normal contour of globe without masses. CALVARIUM: No fracture. PARANASAL SINUSES: No fluid or mucosal thickening. SOFT TISSUES: No mass or hematoma. OTHER: No other significant finding. IMPRESSION: No acute intracranial imaging findings. EVIDENCE OF ACUTE STROKE: NO. COMMENT: Quality ID # [id number]: Final reports with documentation of one or more dose reduction techniques (e.g., Automated exposure control, adjustment of the mA and/or kV according to patient size, use of iterative reconstruction technique) TECHNICAL DOCUMENTATION: JOB ID: [id number] [email or web address]- All Rights Reserved Reading location - IP/workstation name: [email or web address]
[2018-11-25] MEDS ORDERED: CLONIDINE HCL 0.1 MG TABLET PO ONE (18:54)
[2018-11-25 19:04] VITALS: BP 162/83
== END 2018-11-25 19:11 | disposition home or self-care (01) ==
LOC: ER 11:36
DX: R07.9 Chest pain, unspecified (principal); R51 Headache; M79.602 Pain in left arm; M54.2 Cervicalgia; I11.0 Hypertensive heart disease with heart failure; I50.9 Heart failure, unspecified; J44.9 Chronic obstructive pulmonary disease, unspecified; Z87.891 Personal history of nicotine dependence
CPT/HCPCS: 93005; 99284; 96361; 96374; 96375; 36415; 85025; 80053; 84484; 83880; 71045; 70450; 93010; A9270 ×2; J1200; J3010; J2765; J2405; J7040

== ENCOUNTER 2019-01-07 20:22 | Emergency (ER) | payer MEDICARE, BC ==
[2019-01-07 20:36] VITALS: BP 152/73
--- NOTE | 2019-01-07 22:05 | ER Document Report ---
ED General - General Chief Complaint: Knee Pain Stated Complaint: KNEE PAIN Time Seen by Provider: 01/07/19 21:59 Primary Care Provider: JORDI BRUCE DO [Primary Care Provider] - Follow up as needed Mode of Arrival: Ambulatory Information source: Patient TRAVEL OUTSIDE OF THE [place] IN LAST 30 DAYS: No - HPI Patient complains to provider of: Bilateral knee and left middle finger injury Onset: Other - About 3 weeks ago Quality of pain: Sharp Pain Level: 3 Associated symptoms: None Exacerbated by: Movement, Walking, Other - Weightbearing Relieved by: Denies Similar symptoms previously: No Recently seen / treated by doctor: No Notes: 58-year-old obese -[place] female coming in [facility] to have a checkup on her knees and her left middle finger. About 3 weeks ago, she had a fall and continues to have pain in these areas. She is ambulatory but with some discomfort. She denies any other injuries related to her fall. - Related Data Allergies/Adverse Reactions: fish derived [Fish derived] Allergy (Unknown, Verified 10/01/18 10:34) hydrocodone bitartrate [From [place]] Allergy (Verified 10/01/18 10:34) latex [Latex] Allergy (Verified 10/01/18 10:34) Past Medical History - General Information source: Patient - Social History Smoking Status: Never Smoker Chew tobacco use (# tins/day): No Frequency of alcohol use: None Drug Abuse: None Family History: None, Reviewed & Not Pertinent Patient has suicidal ideation: No Patient has homicidal ideation: No - Past Medical History Cardiac Medical History: Reports: Hx Congestive Heart Failure, Hx Hypertension Denies: Hx Atrial Fibrillation, Hx Coronary Artery Disease, Hx DVT, Hx Heart Attack, Hx Hypercholesterolemia, Hx Peripheral Vascular Disease, Hx Pulmonary Embolism, Hx Heart Murmur Pulmonary Medical History: Reports: Hx Asthma, Hx COPD Denies: Hx Bronchitis, Hx Pneumonia Neurological Medical History: Denies: Hx Cerebrovascular Accident, Hx Seizures Renal/ Medical History: Reports: Hx Kidney Stones. Denies: Hx End Stage Renal Disease, Hx Ovarian Cysts, Hx Peritoneal Dialysis, Hx Pelvic Inflammatory Disease GI Medical History: Reports: Hx Gastroesophageal Reflux Disease, Hx Hiatal Hernia, Hx Irritable Bowel. Denies: Hx Pancreatitis Musculoskeletal Medical History: Reports Hx Arthritis, Reports Hx Musculoskeletal Deformity Past Surgical History: Reports: Hx Breast Surgery - bilateral lumphectomy, Hx Cardiac Catheterization - X 2, Hx Section, Hx Cholecystectomy, Hx Hysterectomy, Hx Orthopedic Surgery - right shoulder x 2, neck - Immunizations Immunizations up to date: Yes Hx Diphtheria, Pertussis, Tetanus Vaccination: Yes Hx Pneumococcal Vaccination: 10/05/06 Review of Systems - Review of Systems Notes: Constitutional: No fevers. No chills. EENT: No eye redness. No eye pain. No ear pain. No sore throat. Cardiovascular: No chest pain. No palpitations. Respiratory: No cough. No shortness of breath. No respiratory distress. Gastrointestinal: No abdominal pain. No nausea, vomiting, or diarrhea. Genitourinary: Atraumatic. No lesions. No pain. No discharge. Musculoskeletal: Positive for bilateral knee pain, positive for left middle finger pain Skin: No rash or lesions. Lymphatic: No swollen lymph nodes. Neurologic: No headache. No syncope. Psychiatric: No suicidal or homicidal ideation. Physical Exam - Vital signs Vitals: Temp Pulse Resp BP Pulse Ox 97.7 F 70 16 152/73 H 97 01/07/19 20:32 01/07/19 20:32 01/07/19 20:32 01/07/19 20:32 01/07/19 20:32 - Notes Notes: Proximal anterior tibial tenderness to deep palpation bilaterally. No deformities. No swelling. No obvious effusions. Normal range of motion. No crepitus. No obvious laxity. Left middle finger is tender from the PIP down to the MCP. No deformity. Good range of motion good distal neurovascular exam is intact Course - Re-evaluation Re-evalutation: 01/07/19 22:05 Plain films ordered - Vital Signs Vital signs: Temp Pulse Resp BP Pulse Ox 97.7 F 70 16 152/73 H 97 01/07/19 20:32 01/07/19 20:32 01/07/19 20:32 01/07/19 20:32 01/07/19 20:32 Discharge - Discharge Clinical Impression: Arthritis Arthralgia Qualifiers: Joint pain location: unspecified Qualified Code(s): M25.50 - Pain in unspecified joint Condition: Good Disposition: HOME, SELF-CARE Instructions: Ice & Elevation ([facility]), Arthritis ([facility]) Prescriptions: Tramadol HCl/Acetaminophen [Ultracet 37.5 mg/325 mg Tablet] 1 each PO Q6H #12 tablet Referrals: JORDI BRUCE DO [Primary Care Provider] - Follow up as needed CROW DOMINIQUE MD [ACTIVE STAFF] - Follow up in 1 week
--- NOTE | 2019-01-07 22:33 | RADIOLOGY REPORT (SQ) ---
EXAM DESCRIPTION: Left hand Views: 3 CLINICAL HISTORY: 58 years Female, fall COMPARISON: None. FINDINGS: Negative for acute fracture, dislocation, or radiopaque foreign body. IMPRESSION: 1. No acute findings.
--- NOTE | 2019-01-07 22:48 | RADIOLOGY REPORT (SQ) ---
EXAM DESCRIPTION: XR RIGHT KNEE 4 OR MORE VIEWS COMPLETED DATE/TME: 01/07/2019 22:00 CLINICAL HISTORY: 58 years, Female, fall COMPARISON: None. NUMBER OF VIEWS: TECHNIQUE: LIMITATIONS: None. FINDINGS: No fracture or dislocation. There are degenerative changes involving all 3 knee joint compartments. The most severe degenerative changes involve the medial joint compartment, with joint space narrowing and extensive osteophyte formation. IMPRESSION: No fracture or dislocation. Degenerative changes. copyright 2010 [employer]- All Rights Reserved
--- NOTE | 2019-01-07 22:50 | RADIOLOGY REPORT (SQ) ---
EXAM DESCRIPTION: XR LEFT KNEE 4 OR MORE VIEWS COMPLETED DATE/TME: 01/07/2019 22:00 CLINICAL HISTORY: 58 years, Female, fall COMPARISON: None. NUMBER OF VIEWS: TECHNIQUE: LIMITATIONS: None. FINDINGS: No fracture or dislocation. There are degenerative changes involving all 3 knee joint compartments. The most severe degenerative changes involve the medial joint compartment, with joint space narrowing. IMPRESSION: No fracture or dislocation. Degenerative changes. copyright 2010 [employer]- All Rights Reserved
== END 2019-01-07 23:33 | disposition home or self-care (01) ==
LOC: ER 20:22
DX: M19.90 Unspecified osteoarthritis, unspecified site (principal); M25.561 Pain in right knee; M25.562 Pain in left knee; M79.645 Pain in left finger(s); W19.XXXA Unspecified fall, initial encounter; I10 Essential (primary) hypertension; J44.9 Chronic obstructive pulmonary disease, unspecified; Z91.013 Allergy to seafood; Z88.5 Allergy status to narcotic agent; Z91.040 Latex allergy status
CPT/HCPCS: 99283

== ENCOUNTER → 2019-03-24 | Day surgery (SDC) | payer MEDICARE, BC ==
[~2019-03-24] MED LIST: BUPIVACAINE HCL 0.5 % INJ/PF 30 ML SDV ONE; LIDOCAINE 1% INJ-PF (10 MG/ML) 30 ML SDV ONE
--- NOTE | 2019-03-24 08:43 | Operative Report ---
PROCEDURE: KNEE RADIOFREQUENCY left under ultrasound guidance Preoperative Diagnosis: Left knee osteoarthritis Postoperative Diagnosis: Left knee osteoarthritis 1. Superolateral genicular branch from the vastus lateralis 2. Superomedial genicular branch from the vastus medialis 3. Inferomedial genicular branch from the saphenous nerve 4. Medial retinacular branch from the vastus intermedius DATE OF PROCEDURE: March 24, 2019 ANESTHESIA: Local anesthesia COMPLICATIONS: None reported PROCEDURE IN DETAIL: Hx/PE/meds/allergies/applicable labs reviewed. No changes and no contraindications were found. Full description of the procedure was provided including benefits as well as possible complications including transient increased pain, stomach irritation, mood alteration, transient weakness or parasthesias as well as more serious nerve injury, bleeding, infection or allergic reaction. Informed consent was obtained and documented. The patient was brought to the procedure room and placed on the exam table in a comfortable supine position. The place for needle placement was obtained by manual palpation with ultrasound confirmation. The sterile field was prepared by chloroprep and sterile drapes. Local anesthesia superficial and deep was provided by local infiltration of 2% lidocaine. A 17g 75 mm radiofrequency introducer needle with a 4 mm active tip was placed overlying the left knee joint and using ultrasound guidance the needle was advanced to a bony endpoint on the superiolateral portion of the femoral condyle of the left knee. A second needle was advanced to a bony endpoint on the superiomedial portion of the femoral condyle. A third needle was then placed over the inferiomedial portion of the tibial condyle until a bony endpoint was met. 4th needle placed 3mm above the patella with the tip in contact with the Medial retinacular branch from the vastus intermedius. Attempted aspiration yielded no blood. Transverse ultrasound views showed all the needles at 50% depth of the femur and tibia. Motor stimulation was tested at 2.0 volts with no leg movement. Images were saved in AP and lateral. A mixture consisting of 0.5% bupivacaine was slowly injected. Then a radiofrequency ablation of each of the geniculate nerves were done at 80 degrees Celsius for 2 minutes and 30 seconds each. The needles were withdrawn. The patient tolerated the procedure well. After observation the patient was discharged with instructions and follow up. They were also provided contact information to call regarding any concerning symptoms or questions. IMPRESSION: 1. Successful geniculate left knee radiofrequency ablation was performed. 2. The patient was given prescription of home medicines. 3. RTC in 1-2 week(s).
== END ==
LOC: RAD 08:37
PROVIDERS: ATTEND Family Medicine
DX: M17.12 Unilateral primary osteoarthritis, left knee (principal); M25.562 Pain in left knee
CPT/HCPCS: 64640; J3490 ×2

== ENCOUNTER 2019-05-24 06:45 | Day surgery (SDC) | payer MEDICARE, BC ==
[~2019-05-24 06:45] MED LIST changes: -BUPIVACAINE HCL 0.5 % INJ/PF 30 ML SDV ONE; -LIDOCAINE 1% INJ-PF (10 MG/ML) 30 ML SDV ONE; +RADIAL COCKTAIL SYRINGE 10 ML IV PRN
[2019-05-24] MEDS ORDERED: DIAZEPAM 5 MG TABLET PO PRN (06:57)
[2019-05-24] MEDS ORDERED: DIPHENHYDRAMINE HCL 25 MG CAPSULE PO PRN (06:58)
[2019-05-24] MEDS ORDERED: ASPIRIN 325 MG TABLET PO ONE (07:00)
[2019-05-24] MEDS ORDERED: LIDOCAINE 0.5% INJ-PF (5 MG/ML) 50 ML SDV ONE (07:58)
[2019-05-24] MEDS ORDERED: FENTANYL CITRATE INJ/PF 100 MCG/2 ML AMPUL ONE (09:02)
[2019-05-24] MEDS ORDERED: MIDAZOLAM 2 MG/2 ML INJ ONE ×2 (09:02→09:09)
--- NOTE | 2019-05-24 09:56 | Operative Report ---
Operative Report DATE OF SURGERY: 05/24/19 PREOPERATIVE DIAGNOSIS: Dyspnea, exercise-induced tachycardia, failed stress te st OPERATION: Right and left heart catheterization, coronary angiography, left ventriculography SURGEON: NAVIN MORRISON ANESTHESIA: Moderate Sedation COMPLICATIONS: None PROCEDURE: After informed consent was obtained the patient was brought to the cardiac catheterization lab the right femoral region was prepared in the usual sterile and draped manner anesthetized 1% lidocaine solution hemodynamic access was gained without difficulty placing a 6 Wolof sheath in the right common femoral artery and a 7 Wolof sheath in the right common femoral vein selective coronary angiography left ventriculography and right heart catheterization was then performed. Conscious sedation was initiated monitored and maintained during the procedure a total of 2 mg of Versed 75 micro grams of fentanyl were administered for conscious sedation procedure start time was 905 completion time was 938 for conscious sedation time of 33 minutes Hemodynamic data aortic pressure is 163/80 at the beginning of the case post ventriculography left ventricular pressure is 167/10 aortic pressure on pullback recording is 168/80 there is no gradient across the aortic valve Screening oximetry demonstrates a right atrial saturation of 76% of PA of 77% and FEF 96% Qp/Qs ratio is 1.05 with a questionable left or right 5% shunt cardiac output is elevated by estimated Jeannie at 10 L/min Right heart pressures: Pulmonary A wedge pressure is 12 PA pressure is 36/10 RV is 38/10 right atrial mean pressure is 8 Coronary angiography: Left main is short but normal The LAD gives rise to 2 large diagonal vessels the LAD and diagonal vessels are normal the LAD is a transapical vessel without significant obstructions The circumflex has almost a separate ostium this was selectively engaged and demonstrates a large posterolateral branches smaller obtuse marginal branch both of these vessels appear clinically normal The right coronary artery has a high takeoff its a dominant vessel and is also normal Left ventriculography is performed in the standard RODRIGUEZ projection this demonstrates a mildly dilated left ventricle with well-preserved regional wall motion and an ejection fraction visually that appears to be in the 55 to 60% range Impression: 1. No evidence of valvular heart disease 2. Normal left ventricular function 3. Normal epicardial coronaries 4. Normal intracardiac pressures 5. Normal pulmonary pressures LINDA Jha
[2019-05-24 13:14] VITALS: BP 138/76
== END 2019-05-24 13:50 | disposition home or self-care (01) ==
LOC: CCL 06:45
PROVIDERS: ATTEND Internal Medicine Cardiovascular Disease
DX: R00.0 Tachycardia, unspecified (principal); R94.39 Abnormal result of other cardiovascular function study; R07.9 Chest pain, unspecified; R06.09 Other forms of dyspnea
CPT/HCPCS: 93460; C1894 ×2; C1887; J2250; A9270 ×3; J3010; J3490; J1644

== ENCOUNTER → 2019-08-23 | Outpatient (CLI) | payer BC, MEDICARE ==
--- NOTE | 2019-08-23 14:05 | RADIOLOGY REPORT (SQ) ---
EXAM DESCRIPTION: CHEST PA/LATERAL COMPLETED DATE/TIME: 08/23/2019 1:53 pm REASON FOR STUDY: DYSPNEA, UNSPECIFIED COMPARISON: 11/25/2018 EXAM PARAMETERS: NUMBER OF VIEWS: two views TECHNIQUE: Digital Frontal and Lateral radiographic views of the chest acquired. RADIATION DOSE: NA LIMITATIONS: none FINDINGS: LUNGS AND PLEURA: No opacities, masses or pneumothorax. No pleural effusion. MEDIASTINUM AND HILAR STRUCTURES: No masses or contour abnormalities. HEART AND VASCULAR STRUCTURES: Enlarged cardiac silhouette, stable. Aortic atherosclerosis. BONES: No acute findings. HARDWARE: None in the chest. Partially visualized cervical hardware. OTHER: No other significant finding. IMPRESSION: Stable enlarged cardiac silhouette without evidence of acute intrathoracic process. TECHNICAL DOCUMENTATION: JOB ID: [id number] [employer]- All Rights Reserved Reading location - IP/workstation name: [email or web address]
[2019-08-23 16:16] LABS: ABSOLUTE EOSINOPHILS # (AUTO) 0.1 10^3/uL (0.0-0.6); ABSOLUTE LYMPHOCYTES (AUTO) 1.9 10^3/uL (0.5-4.7); ABSOLUTE MONOCYTES (AUTO) 0.3 10^3/uL (0.1-1.4); ABSOLUTE NEUT (AUTO) 1.6 10^3/uL (1.7-8.2); BASOPHILS % (AUTO) 0.9 % (0-2); EOSINOPHILS % (AUTO) 2.8 % (0-6); HEMATOCRIT 37.7 % (36.0-47.0); HEMOGLOBIN 12.4 g/dL (12.0-15.5); LYMPHOCYTES % (AUTO) 47.2 % (13-45); MEAN CORPUSCULAR HEMOGLOBIN 27.6 pg (27.0-33.4); MEAN CORPUSCULAR HGB CONC 32.8 g/dL (32.0-36.0); MEAN CORPUSCULAR VOLUME 84 fl (80-97); MONOCYTES % (AUTO) 8.7 % (3-13); PLATELET COUNT 227 10^3/uL (150-450); RED CELL DISTRIBUTION WIDTH 13.6 % (11.5-14.0); SEGMENTED NEUTROPHILS % (AUTO) 40.4 % (42-78); TOTAL CELLS COUNTED % (AUTO) 100 %
== END ==
LOC: OD 13:30
PROVIDERS: ATTEND Physician Assistant
DX: R06.00 Dyspnea, unspecified (principal)
CPT/HCPCS: 36415; 71046; 85025

== ENCOUNTER → 2019-11-24 | Outpatient (CLI) | payer MEDICARE ==
--- NOTE | 2019-11-24 14:27 | RADIOLOGY REPORT (SQ) ---
EXAM DESCRIPTION: LUMBAR SPINE COMPLETE COMPLETED DATE/TIME: 11/24/2019 1:41 pm REASON FOR STUDY: RADICULOPATHY, LUMBAR REGION M54.16 RADICULOPATHY, LUMBAR REGION COMPARISON: None. NUMBER OF VIEWS: Five views including obliques. TECHNIQUE: AP, lateral, oblique, and sacral radiographic images acquired of the lumbar spine. LIMITATIONS: None. FINDINGS: MINERALIZATION: Normal. SEGMENTATION: There may be sacralization of L5. ALIGNMENT: Normal. VERTEBRAE: Maintained height. No fracture or worrisome bone lesion. DISCS: Narrowing of the L5-S1 disc. POSTERIOR ELEMENTS: Hypertrophic facet changes L4-S1. HARDWARE: None in the spine. PARASPINAL SOFT TISSUES: Normal. PELVIS: Intact as visualized. No fractures or worrisome bone lesions. SI joints intact. OTHER: No other significant finding. 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 Facet arthropathy. TECHNICAL DOCUMENTATION: JOB ID: [id number] 2010 [email or web address]- All Rights Reserved Reading location - IP/workstation name: [email or web address]
== END ==
LOC: OD 12:05
PROVIDERS: ATTEND Physician Assistant
DX: M54.16 Radiculopathy, lumbar region (principal)
CPT/HCPCS: 72110

== ENCOUNTER → 2020-06-15 | Outpatient (CLI) | payer MEDICARE ==
--- NOTE | 2020-06-15 13:09 | RADIOLOGY REPORT (SQ) ---
EXAM DESCRIPTION: CHEST PA/LATERAL IMAGES COMPLETED DATE/TIME: 06/15/2020 9:13 am REASON FOR STUDY: DYSPNEA, UNSPECIFIED COMPARISON: 08/23/2019 EXAM PARAMETERS: NUMBER OF VIEWS: two views TECHNIQUE: Digital Frontal and Lateral radiographic views of the chest acquired. RADIATION DOSE: NA LIMITATIONS: none FINDINGS: LUNGS AND PLEURA: Low lung volumes limits the examination. No acute pulmonary consolidat ion. No pneumothorax or pleural effusion. MEDIASTINUM AND HILAR STRUCTURES: No masses or contour abnormalities. HEART AND VASCULAR STRUCTURES: Cardiomegaly, stable finding. Tortuosity of the thoracic aorta. No evidence for failure. BONES: No acute findings. HARDWARE: Lower cervical spine, unchanged finding. OTHER: No other significant finding. IMPRESSION: 1. Low lung volumes limits examination. No acute pulmonary findings. 2. Cardiomegaly, stable finding. TECHNICAL DOCUMENTATION: JOB ID: [id number] 2010 [employer]- All Rights Reserved Reading location - IP/workstation name: [email or web address]
== END ==
LOC: RAD 08:54
PROVIDERS: ATTEND Physician Assistant
DX: R06.00 Dyspnea, unspecified (principal)
CPT/HCPCS: 71046

== ENCOUNTER → 2020-10-19 | Outpatient (CLI) | payer MEDICARE, OTHER ==
[2020-10-19 14:56] LABS: ANION GAP 8 (5-19); BLOOD UREA NITROGEN 20 mg/dL (7-20); CALCIUM 9.7 mg/dL (8.4-10.2); CARBON DIOXIDE 26 mmol/L (22-30); CHLORIDE 106 mmol/L (98-107); GLUCOSE 133 mg/dL (75-110); POTASSIUM 4.4 mmol/L (3.6-5.0)
== END ==
LOC: OD 13:44
PROVIDERS: ATTEND Physician Assistant
DX: E87.5 Hyperkalemia (principal)
CPT/HCPCS: 36415; 80048